=== PATIENT | female | born 1935 | race Caucasian/White ===

== ENCOUNTER 2018-04-23 19:56 | Inpatient (IN) | payer MEDICARE, OTHER ==
[2018-04-23] MEDS ORDERED: Nitroglycerin 0.4 MG TAB (25 Tab Bottle) PO PRN (21:34)
[2018-04-23] MEDS ORDERED: Acetaminophen 650 MG Suppository PR PRN (21:34)
[2018-04-23] MEDS ORDERED: Zolpidem Tartrate 5 MG TAB PO PRN (21:34)
[2018-04-23] MEDS ORDERED: Acetaminophen 325 MG TAB PO PRN (21:34)
[2018-04-23] MEDS ORDERED: Senokot S 8.6-50 MG TAB PO PRN (21:34)
[2018-04-23] MEDS ORDERED: Bisacodyl 5 MG TAB PO PRN (21:34)
[2018-04-23] MEDS ORDERED: Calcium Carbonate 500 MG ChewTAB PO PRN (21:34)
[2018-04-23 22:15] LABS: INR-International Normal Ratio 1.1; PTT 41.7 SEC (22.9-36.1); Prothrombin Time 14.7 SEC (12.0-14.7)
[2018-04-23 22:27] LABS: Albumin 3.7 g/dL (3.4-4.8); Anion Gap 13 mmol/L (10-20); BUN (Urea Nitrogen) 38 mg/dL (9.8-20.1); BUN/Creatinine Ratio 20.77; Calc. Creatinine Clearance 0 mL/min (70-130); Calcium 10.8 mg/dL (7.8-10.44); Carbon Dioxide 32 mmol/L (23-31); Chloride 99 mmol/L (98-107); Estimated GFR-MDRD 26; Glucose 179 mg/dL (83-110); Phosphorus 4.3 mg/dL (2.3-4.7); Potassium 4.3 mmol/L (3.5-5.1); Sodium 140 mmol/L (136-145)
--- NOTE | 2018-04-23 22:32 | ULT ---
RENAL ULTRASOUND: 04/23/18 COMPARISON: None. HISTORY: Acute kidney injury. TECHNIQUE: Multiplanar anderson scale and color doppler images were obtained in a renal ultrasound. FINDINGS: The kidneys demonstrate normal cortical echogenicity. There is mild cortical thinning. There is an an echoic cyst in the right kidney measuring 2.4 cm in greatest dimensions. No hydronephrosis or shadowi ng calculi are seen on the either side. The kidneys measures 8.6 and 9.2 cm in length on the right an d left, respectively. The urinary bladder is decompressed as the patient recently voided. IMPRESSION: Right renal cyst. POS: TIAGO
[2018-04-23 23:27] LABS: Troponin I 0.236 ng/mL (< 0.028)
[2018-04-23] MEDS ORDERED: Heparin 10,000 UNITS/ 10 ML VIAL SLOW IVP SCH (23:45)
[2018-04-24] MEDS ORDERED: Heparin 25,000 units/D5W 500 ML ONE (00:12)
[2018-04-24 01:43] LABS: Troponin I 0.182 ng/mL (< 0.028)
[2018-04-24] MEDS ORDERED: Nitroglycerin 2% Ointment 1 INCH/1 GM Packet ONE (02:53)
[2018-04-24 03:47] LABS: #Lymphocytes 0.4 thou/uL (1.20-3.40); %Eosinophils 0.2 % (0.0-10.0); %Monocytes 0.2 % (0.0-10.0); %Neutrophils 87.6 % (42.0-75.0); Hemoglobin 11.3 g/dL (12.0-16.0); Mean Corpuscular HGB CONC 33.5 g/dL (32.0-36.0); Mean Corpuscular Hemoglobin 32.5 pg (27.0-31.0); Mean Corpuscular Volume 97.2 fL (78.0-98.0); Platelet Count 181 thou/uL (130-400); RBC Distribution Width 14.4 % (11.5-14.5); Red Blood Cell (RBC) Count 3.48 mill/uL (4.20-5.40); White Blood Cell (WBC) Count 3.4 thou/uL (4.8-10.8)
[2018-04-24 04:09] LABS: Anion Gap 15 mmol/L (10-20); BUN (Urea Nitrogen) 41 mg/dL (9.8-20.1); Calc. Creatinine Clearance 0 mL/min (70-130); Calcium 10.3 mg/dL (7.8-10.44); Carbon Dioxide 29 mmol/L (23-31); Cardiac Risk 4.1 (Less than 4.5); Chloride 99 mmol/L (98-107); Cholesterol 198 mg/dl (< 200 Desired); Estimated GFR-MDRD 28; Glucose 226 mg/dL (83-110); HDL Cholesterol 48 mg/dL (>60 Neg Risk); LDL Cholesterol, Calculated 135 mg/dL; Potassium 4.1 mmol/L (3.5-5.1); Sodium 139 mmol/L (136-145); Triglycerides 75 mg/dL (Less than 150)
[2018-04-24 04:13] LABS: Troponin I 0.153 ng/mL (< 0.028)
[2018-04-24 08:02] LABS: PTT Greater than 250.0 SEC (22.9-36.1)
[2018-04-24] MEDS ORDERED: Famotidine 20 MG TAB PO SCH ×2 (09:00)
[2018-04-24] MEDS ORDERED: Famotidine/PF 20 mg/2ml Vial SLOW IVP SCH (09:00)
[2018-04-24 10:13] LABS: D-Dimer Test 3.23 *mcg/mL (0.27-0.43)
[2018-04-24 10:19] LABS: PTT 215.2 SEC (22.9-36.1)
[2018-04-24] MEDS ORDERED: Ondansetron PF 4 MG/2 ML Vial IVP PRN (11:48)
[2018-04-24] MEDS ORDERED: Ondansetron ODT 4 MG TAB PO PRN (11:48)
[2018-04-24] MEDS ORDERED: Sodium Chloride 0.9% 1,000 ML IV SCH ×2 (12:00→20:15)
--- NOTE | 2018-04-24 12:17 | ULT ---
BILATERAL LOWER EXTREMITY VENOUS ULTRASOUND: Comparison: None. History: Shortness of breath. Dyspnea on exertion. Technique: Multiplanar grayscale and color doppler images were obtained in a bilateral lower extremit y venous ultrasound. Spectral analysis of the doppler waveforms were performed. FINDINGS: Bilateral common femoral veins, profunda femoral veins, superficial femoral veins, and popliteal vein s are normal in appearance without visible thrombus. These vessels demonstrate normal compression, fl ow, and augmentation. The posterior tibial veins and greater saphenous veins are also patent. IMPRESSION: No evidence of DVT. POS: RANDY
[2018-04-24] MEDS ORDERED: Levothyroxine 150 MCG TAB PO SCH (12:32)
[2018-04-24] MEDS ORDERED: Furosemide 40 MG/4 ML VIAL SLOW IVP SCH (12:45)
[2018-04-24] MEDS ORDERED: PROVENTIL INHALER 6.7 G (200 INHALATIONS) INH PRN (13:00)
[2018-04-24] MEDS: Nitroglycerin 2% Ointment 1 INCH/1 GM Packet TOP SCH ×3 (13:21→22:37)
[2018-04-24] MEDS: Aspirin 325 MG TAB PO SCH (13:22)
[2018-04-24] MEDS: Famotidine/PF 20 mg/2ml Vial SLOW IVP SCH (13:23)
[2018-04-24 14:59] VITALS: BMI 40.1
--- NOTE | 2018-04-24 14:59 | HP ---
CHIEF COMPLAINT: Dyspnea on exertion. Presumed PE. HISTORY OF PRESENT ILLNESS AND REVIEW OF SYSTEMS: Mrs. Sanon is a very pleasant 83-year-old woman who presents complaining of dyspnea on exertion. She has noted progressively worsening shortness of breath for the last month. She states that has become increasingly worse even with walking very short distances such as to the bathroom from her bedroom, which is only a few feet. She denies having any chest pain per se, but describes "tightness," when she exerts herself after she becomes short of breath. She states this discomfort is nonradiating. She denies ever having any symptoms like this in the past. She reports of occasional cough recently, but no hemoptysis. She has a background history of fibromyalgia, rheumatoid arthritis, and asthma, but does not require daily inhaler use. In fact, the patient states she previously suffered from severe allergies, but this has improved. She was transferred here from [place] after she was noted to have an elevated troponin of 0.236. Subsequent repeat TNIs were 0.182 and then 0.153. The patient denies any history of heart disease, CHF, or COPD. She denies smoking. She states she was given nebulizer treatment in [place], which did help improve her wheezing. She remains on 4 L of O2 by nasal cannula and remains with labored breathing despite some mild improvement. She reports having right upper quadrant pain, which she states is attributed to gastritis. She has undergone endoscopies in the past. She denies any recent changes with her appetite. Has not had any hematemesis. Does report occasional dark blood colored stools. She denies any bright red blood in her stools. She states this has been going on for the last month, but has not sought any medical attention. Denies diarrhea or constipation. She denies having any recent fevers, chills, or sweats. Denies any headaches or dizziness. Negative ears, nose, and throat review of systems. All other review of systems are negative. PAST MEDICAL HISTORY: 1. Previous history of shingles. 2. Chronic back pain. 3. Hypothyroidism. 4. Fibromyalgia. 5. Rheumatoid arthritis, on methotrexate. 6. Hyperlipidemia. 7. Hypertension. 8. Asthma. PAST SURGICAL HISTORY: 1. Status post hysterectomy. 2. Status post cholecystectomy. SOCIAL HISTORY: The patient is and lives with her family. She denies any alcohol use or drug use. She does not currently smoke, but did smoke previously. She quit more than 10 years ago. ALLERGIES: NO KNOWN DRUG ALLERGIES. CURRENT MEDICATIONS: 1. Levothyroxine 137 mcg p.o. daily. 2. Tizanidine 2 mg p.o. at bedtime as needed. 3. Ventolin inhaler. 4. Metoprolol/hydrochlorothiazide 50/12.5 mg tablet p.o. daily. 5. Methotrexate sodium 25 mg/mL vial, 0.4 mL injection. 6. Folic acid 1 mg p.o. daily. 7. Valsartan 160 mg p.o. daily. 8. Fluticasone 50 mcg nasally daily. PHYSICAL EXAMINATION: GENERAL: The patient is found resting in bed. She is in no acute distress, but is visibly short of breath with oxygen in place by nasal cannula, requiring pauses between sentences to catch her breath. SKIN: Normal. Warm and dry. VITAL SIGNS: Stable HEENT: Normocephalic, atraumatic. Pupils are equal, round, and reactive to light. Sclerae without icterus. Oropharynx is clear. NECK: Supple without lymphadenopathy. LUNGS: Notable for mild expiratory wheezes throughout all lung conley. No crackles or rhonchi. CARDIOVASCULAR: Regular rate and rhythm. No audible murmurs, rubs, or gallops. ABDOMEN: Soft, obese. Nondistended. Right upper quadrant discomfort with palpation. No guarding or rigidity. No renal angle tenderness. EXTREMITIES: She does have increased girth of bilateral lower limbs, but no evidence of edema. The patient states this is chronic for her. No calf pain, but she does have generalized aching in her legs and the joints due to the fibromyalgia and rheumatoid arthritis. Bilateral pedal pulses present. NEUROLOGIC: Alert and oriented x3. Normal affect. No focal neurological deficits. LABORATORY DATA: White blood count 3.4, hemoglobin 11.3, hematocrit 33.9, platelets 181. PTT 41.7 initially. This was then raised to 250, therefore her heparin was discontinued. PTT is now 215.2. Sodium 129, potassium 4.1, BUN 41, creatinine 1.73, eGFR 28. Glucose 226, calcium 10.3. LFTs unremarkable. TNI as mentioned above. IMAGING DATA: 1. Chest x-ray: No evidence of acute cardiopulmonary disease. 2. CT abdomen and pelvis. Diverticulosis involving the colon without evidence of acute diverticulitis. Nonobstructing left renal calcifications seen as well as a right renal cyst. 3. Bilateral renal ultrasound notable for a right renal cyst. IMPRESSION AND PLAN: The patient has been admitted for further workup and management; however, remains on ER hold, awaiting a bed. 1. Presumed pulmonary embolism. The patient was started on heparin for presumed pulmonary embolism. We have requested a D-dimer. VQ scan was ordered due to deranged renal function, as well as low extremity doppler US. Given the significantly raised PTT, we will continue to hold heparin. 2. Hypoxia. Possibly due to PE or CHF. BNP raised with lower limb edema. Continue Oxygen and Duo nebs. Lasix 20 mg PO x 1. Pulmonary and Cardiology consult. Echo requested. 3. Acute kidney injury. Slow hydration. Continue to monitor. Awaiting Nephrology consult. 4. RUQ pain. Hx of gastritis, gastric ulcers. Recent dark blood colored stools x [address] of abdomen and pelvis done showing only diverticulosis with no signs of acute diverticulitis. She does have a left nonobstructing renal calculus. She will be started on PPI. Continue to monitor for signs/symptoms of GI bleed. 5. GI Prophylaxis. 6. VTE prophylaxis. Mechanical SCDs. Anticoagulation started, as presumed to have PE. The patient's case was discussed with Dr. Oliveira, who agrees with the plan of care as described above. Job ID: [id number] [facility]
--- NOTE | 2018-04-24 15:46 | CON ---
DATE OF CONSULTATION: REASON FOR CONSULTATION: Shortness of breath. HISTORY OF PRESENT ILLNESS: Ms. Sanon is an 83-year-old woman, who has not been seen or evaluated by Cardiology in the past. She states for the last 6 months, she has had increased shortness of breath. It has become more progressive. She was seen and evaluated by an nutrition manager, who has felt this was not due to an allergy. She was placed on nebulizer therapy and her symptoms worsened. She proceeded to the emergency room with the above. No chest pain, pressure, or associated symptoms noted. PAST MEDICAL HISTORY: Rheumatoid arthritis, hypertension. ALLERGIES: NONE. MEDICATIONS: Include tizanidine, Ventolin, Dutoprol, folic acid, levothyroxine, valsartan, and methotrexate. REVIEW OF SYSTEMS: A 10-point review of systems is reviewed and as above, otherwise negative. PHYSICAL EXAMINATION: GENERAL: Patient is a pleasant 83-year-old, who is in no acute distress. The patient appears their stated age. VITAL SIGNS: Blood pressure 130/64, pulse 92, temperature 98.8. NEUROLOGIC: The patient is alert and oriented x3 with no focal neurologic deficits. HEENT: Sclerae without icterus. Mouth has moist mucous membranes with normal pallor. NECK: No JVD. Carotid upstroke brisk. No bruits bilaterally. LUNGS: Crackles noted bilaterally. BACK: No scoliosis or kyphosis. CARDIAC: Irregularly irregular. Tachycardic. ABDOMEN: Soft, nontender, nondistended. No peritoneal signs present. No hepatosplenomegaly. No abnormal striae. EXTREMITIES: 2+ femoral and 2+ dorsalis pedis pulses. No cyanosis, clubbing, or edema. SKIN: No gross abnormalities. PERTINENT LABORATORY DATA: Hemoglobin 11.3. D-dimer 3.2. Creatinine 1.73 with a GFR of 28. EKG initially shows normal sinus rhythm with nonspecific ST-T wave changes. IMPRESSION: 1. Shortness of breath. 2. Elevated troponin. 3. 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 RECOMMENDATIONS: Ms. Sanon's symptoms certainly suggested underlying congestive heart failure. She has crackles noted bilaterally. Her BNP was slightly elevated at 423. At this point, I would recommend giving a low-dose diuretic therapy. I would not want to over diurese given a baseline creatinine of 1.73. She has an echo ordered and will review. She also has mild wheezing present on her physical exam and at this point, it is unlikely to benefit from beta-fani therapy, which could worsen her asthma. Further recommendations pending the above. Job ID: [id number]
--- NOTE | 2018-04-24 19:22 | HP ---
PRIMARY CARE PHYSICIAN: Dr. Perla Santoro in [place]. CHIEF COMPLAINT: Shortness of breath. HISTORY OF PRESENT ILLNESS: Ms. Sanon is a very pleasant 83-year-old female, who has a history of hypertension as well as rheumatoid arthritis and hypothyroidism. She was in her usual state of health until about a month ago when she noticed that she was becoming short of breath. She says she first noted it when she was moving around, for example she says that she walked from her room to her bathroom and by that time she did this, she was extremely short of breath, would have to sit down for about 30 minutes before she could recover. She also says that during this time she would get so short of breath that she would have physical pains in the upper abdominal area. She says that is the best way that she can describe it. She does not really say it is nell chest pain. She also states that she has been sleeping in her recliner over the past few days to weeks and it does seem like it is worse if she lays back. She says that it has gotten to the point where last night she felt like she was not going to make it due to the severe dyspnea. She came to the emergency room in [place], where she was evaluated and then transferred to our facility for further recommendations. It has been noted that she has a slightly elevated troponin and that her D-dimer was elevated as well, and there is concern for both acute coronary syndrome as well as possible thromboembolic disease. A CT angiogram was not performed due to her elevated creatinine. The patient apparently was given a DuoNeb treatment in the ER and then transferred to our facility. At this moment, she says she is slightly feeling a bit better. REVIEW OF SYSTEMS: All systems were reviewed and are negative except for that mentioned in the history of present illness. It is also mentioned that the patient says that she had a cardiac workup here at our facility, in which she had what sounds like an echocardiogram and a cardiac catheterization, that was normal. She says that this was just routine and it was not due to any symptoms. Apparently, it was a workup for some planned treatment by her power equipment technology instructor. PAST MEDICAL HISTORY: Significant for hypothyroidism, hyperlipidemia, hypertension, rheumatoid arthritis, asthma, and chronic low back pain. PAST SURGICAL HISTORY: She has had a hysterectomy and cholecystectomy. ALLERGIES: NO KNOWN DRUG ALLERGIES. SOCIAL HISTORY: She is . Her [id number] is her surrogate decision maker and her name is Corin. Code status is full code. She is a former smoker. She quit in 1989. She smoked for about 12 years. Denies any alcohol use. FAMILY HISTORY: No history of any heritable diseases. MEDICATIONS: She states these were given to the ER physician and these include; 1. Fluticasone nasal spray. 2. Tizanidine 2 mg q.4 hours p.r.n. 3. Ventolin inhaler. 4. Dutoprol 50/12.5 daily. 5. Folic acid 1 mg daily. 6. Levothyroxine 137 mcg daily. 7. Valsartan 160 mg daily. 8. Methotrexate 0.4 subcutaneous once a week. PHYSICAL EXAMINATION: GENERAL: She is alert and oriented. She appears to be in no acute distress. VITAL SIGNS: Blood pressure was 150/79, heart rate 83, respiratory rate of 25, temperature was 98.7. HEENT: Pupils are equal, round, and reactive. Extraocular muscles are intact. Sclerae are anicteric. Throat; no erythema. No exudates. NECK: No adenopathy. No bruits. LUNGS: She has decreased breath sounds at the bases. She has rales to about 1/[address] up on the left, quarter the way up on the right. No significant wheezing or rhonchi. CARDIOVASCULAR: She has a normal S1, S2. I did not appreciate an S3 or S4. No murmurs, clicks, or rubs. ABDOMEN: Obese and soft. It is nontender and nondistended. Positive for bowel sounds. There is no rebound, no guarding. EXTREMITIES: Her legs are mildly erythematous, but there is no warmth. She has 1 to 2+ pitting edema on both lower extremities. The edema is symmetric. She has palpable dorsalis pedis pulses. There is no crepitus. NEUROLOGIC: Her cranial nerves 2 through 12 are grossly intact, and her muscle strength is also intact in the upper and lower extremities. SKIN AND INTEGUMENT: She has some mild erythema of the lower extremities as previously mentioned as well as some mild onychomycosis of the toenails. LABORATORY AND DIAGNOSTIC DATA: On her chest x-ray, it is poorly penetrated. She has borderline cardiomegaly, and in my opinion, some increase in her pulmonary vascular markings bilaterally. EKG was sinus rhythm with a rate of [address] wave changes. ASSESSMENT AND PLAN: 1. This is a pleasant 83-year-old female, who presents with progressive dyspnea on exertion over the past month. This is in the setting of a history of hypertension as well as rheumatoid arthritis. She does elicit some symptoms of orthopnea, and her proBNP is elevated. Therefore, heart failure, either systolic or diastolic, is high on the list. She also has an elevated D-dimer, however, this could be elevated based on her age. However, she does have some chronic venous stasis changes and therefore pulmonary embolism should be ruled out, and given her history of rheumatoid arthritis, pulmonary fibrosis or interstitial lung disease is also a possibility. She will therefore be admitted to telemetry. We will get lower extremity venous Dopplers as well as a V/Q scan to help answer the question of pulmonary embolism. An echocardiogram will also be obtained as well as a Cardiology consult. Given the elevated BNP and what appears to be some degree of volume overload, we will give her a dose of Lasix now. 2. Hypertension. Her blood pressure is currently controlled. We will restart her usual home medications as well as p.r.n. medications for blood pressure. 3. Hypothyroidism. Her TSH is slightly suppressed. We will check a free T4. If this is normal, then the suppression of the TSH is appropriate. 4. Rheumatoid arthritis. We will continue her usual home medications and keep her on her usual schedule for methotrexate. 5. For the possible venous thromboembolic disorder, she was given a dose of heparin in the ER. We will go ahead and wait for the results of the Doppler as well as a V/Q scan before continuing any heparin infusion as the patient is currently clinically stable at this time. Job ID: [id number]
--- NOTE | 2018-04-24 19:53 | NM ---
NUCLEAR MEDICINE VQ SCAN: 04/24/18 HISTORY: Dyspnea on exertion. COMPARISON: None. TECHNIQUE: Patient administered 6 millicuries of Xenon gas for ventilation imaging and 5.5 millicuries of techne tium 99m MAA intravenously for perfusion imaging. FINDINGS/IMPRESSION: There do appear to be multifocal areas of ventilation perfusion mismatch having multifocal segmental/ subsegmental distribution. There is evidence for high probability for pulmonary artery embolism. CT angiogram of the chest is r ecommended. Results of the study discussed with Sabrina, patient's nurse, 04/24/18. Code CR POS: RANDY
[2018-04-24] MEDS ORDERED: Heparin 10,000 UNITS/ 10 ML VIAL SLOW IVP SCH (20:15)
[2018-04-24] MEDS ORDERED: Heparin 25,000 units/D5W 500 ML IV SCH (20:15)
[2018-04-24] MEDS: Famotidine 20 MG TAB PO SCH (20:58)
[2018-04-24] MEDS ORDERED: tiZANidine HCl 4 MG TAB PO PRN (21:00)
--- NOTE | 2018-04-24 21:48 | CON ---
DATE OF CONSULTATION: 04/24/2018 REASON FOR CONSULTATION: Elevated creatinine. HISTORY OF PRESENT ILLNESS: This is an 83-year-old female, who was admitted to the hospital today for elevated troponin and hypoxia. The patient's creatinine on admission was 1.7, prior baseline was 1.8 yesterday. Her creatinine has been gradually rising, prior baseline was 1.2 a few years ago. The patient denies any headache, numbness, tingling, or weakness. REVIEW OF SYSTEMS: A 15-point review of systems was performed and was negative except for positives noted above. GENERAL: HEAD: NECK: No swelling or lumps. NOSE: No epistaxis or discharge. EYES: No diplopia or pain. RESPIRATORY: CARDIOVASCULAR: GASTROINTESTINAL: /COURT CLERK: MUSCULOSKELETAL: No joint pain. NEUROPSYCHIATIC SYSTEMS: No suicidal ideation. No ideation. SKIN: Denies any rash or ulcer. CONSTITUTIONAL: No fever or chills. PAST MEDICAL HISTORY: Shingles, chronic back pain, hyperlipidemia, hypercholesterolemia, blood clots, congestive heart failure, rheumatoid arthritis. PAST SURGICAL HISTORY: Significant for hysterectomy, cholecystectomy. SOCIAL HISTORY: No tobacco, alcohol, or drug use. ALLERGIES: REVIEWED. HOME MEDICATIONS: Reviewed. PHYSICAL EXAMINATION: GENERAL: The patient is awake and alert. VITAL SIGNS: Afebrile. Pulse 86, breathing 16, blood pressure 139/85. GENERAL APPEARANCE AND MENTAL STATUS: Fair. HEAD/NECK: Normocephalic. Atraumatic. EYES: EOMI. No deformity. EARS: Clear. No ulcers. NOSE: Intact. No lesions. MOUTH: Clear. No discharge. THROAT: Clear. No exudate. LUNGS: Clear. No crackles. CARDIAC: S1, S2. No rub. ABDOMEN: Benign. Bowel sounds positive. GENITALIA/RECTUM: Meek absent. BACK/EXTREMITIES: Edema 0+. NEUROLOGICAL: Alert and motor intact. SKIN: LYMPHATICS: ASSESSMENT AND PLAN: 1. Acute kidney injury due to cardiorenal syndrome. Continue gentle hydration. 2. Hypertension, stable. 3. Anemia, stable. 4. Medications based on GFR as appropriate. 5. No indication for dialysis. Job ID: [id number]
[2018-04-25] MEDS: Nitroglycerin 2% Ointment 1 INCH/1 GM Packet TOP SCH ×3 (05:17→21:33)
[2018-04-25] MEDS: Levothyroxine Sodium 112 MCG TAB PO SCH (05:18)
[2018-04-25] MEDS: Levothyroxine Sodium 25 MCG TAB PO SCH (05:18)
[2018-04-25 05:52] LABS: #Eosinphils 0.3 thou/uL (0.0-0.7); #Monocytes 0.1 thou/uL (0.11-0.59); #Neutrophils 3.7 thou/uL (1.40-6.50); %Basophils 0.8 % (0.0-1.0); %Eosinophils 6.7 % (0.0-10.0); %Lymphocytes 19.5 % (21.0-51.0); %Monocytes 2.2 % (0.0-10.0); %Neutrophils 70.9 % (42.0-75.0); Hemoglobin 9.7 g/dL (12.0-16.0); Mean Corpuscular Hemoglobin 32.5 pg (27.0-31.0); Mean Corpuscular Volume 98.6 fL (78.0-98.0); Mean Platelet Volume 7.1 fL (7.4-10.4); Platelet Count 205 thou/uL (130-400); RBC Distribution Width 14.4 % (11.5-14.5); White Blood Cell (WBC) Count 5.2 thou/uL (4.8-10.8)
[2018-04-25 06:04] LABS: PTT 228.4 SEC (22.9-36.1)
[2018-04-25 06:08] LABS: Chloride 101 mmol/L (98-107); Potassium 3.8 mmol/L (3.5-5.1); Sodium 142 mmol/L (136-145)
[2018-04-25 06:47] LABS: Anion Gap 16 mmol/L (10-20); Carbon Dioxide 30 mmol/L (23-31)
[2018-04-25 07:27] LABS: BUN (Urea Nitrogen) 45 mg/dL (9.8-20.1); Calc. Creatinine Clearance 45 mL/min (70-130); Estimated GFR-MDRD 35; Glucose 124 mg/dL (83-110)
[2018-04-25] MEDS: Famotidine 20 MG TAB PO SCH ×2 (08:09→21:33)
[2018-04-25] MEDS: Aspirin 325 MG TAB PO SCH (08:09)
[2018-04-25] MEDS: Folic Acid 1 MG TAB PO SCH (08:09)
[2018-04-25] MEDS: Valsartan 80 MG TAB PO SCH (08:09)
[2018-04-25] MEDS: Fluticasone Propionate Nasal Spray 16 gm Bottle NASAL SCH (08:10)
[2018-04-25] MEDS: Famotidine/PF 20 mg/2ml Vial SLOW IVP SCH (08:10)
[2018-04-25] MEDS ORDERED: Sodium Chloride 0.9% 1,000 ML IV SCH (09:00)
[2018-04-25] MEDS: Furosemide 20 MG/2 ML VIAL SLOW IVP SCH (09:03)
[2018-04-25] MEDS: Pantoprazole 40 MG VIAL IVP SCH (09:03)
--- NOTE | 2018-04-25 09:19 | PDOC.PN ---
- Subjective Encounter Start Date: 04/25/18 Encounter Start Time: 09:19 Subjective: SOB with persistent labored breathing. Able to speak in full sentences. -: RUQ pain (hx gastric ulcers). Last BM yesterday morning, soft, no melena. -: Denies CP. Edema of lower legs and hands. Denies fever. Eating/drinking. Has not received Nebs yet since admission. No cough or hemoptysis. Patient states she her more recent cardiac work-up was done due to medications for Fibromyalgia/Rheumatoid arthritis. Under. Dr. Mark. - Objective Resuscitation Status - Order Detail: 04/23/18 21:34 Resuscitation Status Routine Resuscitation Status: FULL: Full Resuscitation Vital Signs & Weight: Vital Signs (12 hours) Temp Pulse Resp BP Pulse Ox 04/25/18 08:03 98.2 F 80 20 136/62 98 04/25/18 03:00 97.9 F 83 20 106/60 97 04/24/18 23:56 98 F 92 22 H 102/50 L 93 L Weight Weight 218 lb 4.122 oz I&O: 04/24/18 04/25/18 04/26/18 06:59 06:59 06:59 Intake Total 899 Output Total 250 Balance 649 Result Diagrams: 04/25/18 04:39 04/25/18 04:39 Phys Exam - Physical Examination Constitutional: NAD HEENT: PERRLA, sclera anicteric, oral pharynx no lesions MMs dry. Neck: no nodes, supple, full ROM Respiratory: wheezing present Bilateral expiratory wheezing, crackles at bases bilaterally. Cardiovascular: RRR No chest wall tenderness Gastrointestinal: soft, no distention, positive bowel sounds RUQ discomfort with palpation, no rigidity or guarding present Musculoskeletal: edema present trace edema in bilateral hands and lower legs(feet to knees) Neurological: non-focal, normal sensation, moves all 4 limbs Lymphatic: no nodes Psychiatric: normal affect, A&O x 3 Skin: no rash Dx/Plan (1) Suspected pulmonary embolism Code(s): R09.89 - OTH SYMPTOMS AND SIGNS INVOLVING THE CIRC AND RESP SYSTEMS Status: Acute (2) SOB (shortness of breath) Code(s): R06.02 - SHORTNESS OF BREATH Status: Acute (3) Hypoxia Code(s): R09.02 - HYPOXEMIA Status: Acute (4) RANDOLPH (acute kidney injury) Code(s): N17.9 - ACUTE KIDNEY FAILURE, UNSPECIFIED Status: Acute (5) Abdominal pain Code(s): R10.9 - UNSPECIFIED ABDOMINAL PAIN Status: Acute - Plan cont current plan of care, respiratory therapy Low diuresis per Nephrology - Lasix 20 mg IV prescribed. Daily AM weights. -: Renal function improving, Cr 1.44, Cr Cl 45. Slow IV hydration (55 ml/hr). -: S/p Echo: EF 55-60%, diastolic dysfunction. Awaiting Cardrio review. -: SOB/Wheezing. Duo-neb changed from PRN to scheduled. Awaiting Pulm Consult -: S/p VQ. Highly Probable PE. Heparin D/C. Lovenox 150 mg SC daily, wt=99.7kg Continue O2. Monitor O2 sat. RUQ pain, hx of gastric ulcers. CT/AP no acute changes. Protonix 40 mg IV. Monitor for symptoms of GI bleed. Monitor H/H. Repeat Labs this PM including H/H, renal function and BNP.
--- NOTE | 2018-04-25 10:22 | PDOC.CTH ---
Cardiology Progress Note - Subjective Still with c/o SOB/TRACY. Wheezing less. c/o constipation. - Objective Vital Signs Temp Pulse Resp BP Pulse Ox 04/25/18 09:56 94 24 H 96 04/25/18 08:03 98.2 F 80 20 136/62 98 04/25/18 03:00 97.9 F 83 20 106/60 97 04/24/18 23:56 98 F 92 22 H 102/50 L 93 L Weight 218 lb 4.122 oz 04/24/18 04/25/18 04/26/18 06:59 06:59 06:59 Intake Total 899 Output Total 250 Balance 649 - Physical Examination General/Neuro: alert & oriented x3 Lungs: CTA Heart: RRR Abdomen: NT/ND Extremities: + edema B - Telemetry Telemetry Rhythm: SR - Labs Result Diagrams: 04/25/18 15:33 04/25/18 15:33 Troponin/CKMB Troponin I 0.153 ng/mL (< 0.028) H 04/24/18 03:38 - Assessment/Plan 1. PE 2. Acute on chronic diastolic CHF 3. Moderate MR 4. HTN 5. NEIL Patient changed from Heparin gtt to lovenox today. Can hopefully transition to Eliquis or Xarelto in next 24 hours. Awaiting pulmonary consult. Bblocker held at this point. May resume in the future once symptomatically improved. Continue IV lasix one more day and transition to po. Pt seen and examined. (+) perfusion defect strongly suggesting PE. On ACT. Change to PO ACT tomorrow. Pulmonary consult.
[2018-04-25] MEDS ORDERED: Enoxaparin Sodium 100 MG/ML SYRINGE SC SCH (10:30)
--- NOTE | 2018-04-25 10:32 | PRG ---
DATE OF SERVICE: 04/25/2018 SUBJECTIVE: This is an 83-year-old female being seen for acute kidney injury. The patient denies any nausea, vomiting, or chest pain. OBJECTIVE: CONSTITUTIONAL: On examination, the patient is awake, alert. VITAL SIGNS: Afebrile, pulse 98, breathing 16, and blood pressure 136/62. GENERAL APPEARANCE AND MENTAL STATUS: Fair. HEAD/NECK: Normocephalic. Atraumatic. EYES: EOMI. No deformity. EARS: Clear. No ulcers. NOSE: Intact. No lesions. MOUTH: Clear. No discharge. THROAT: Clear. No exudate. LUNGS: Clear. No crackles. CARDIAC: S1, S2. No rub. ABDOMEN: Benign. Bowel sounds positive. GENITALIA/RECTUM: Meek absent. BACK/EXTREMITIES: Edema 0+. NEUROLOGICAL: Alert and motor intact. LABORATORY DATA: Labs show hemoglobin 9.7. Creatinine 1.4. ASSESSMENT AND PLAN: 1. Acute kidney injury, stable. 2. Hypertension, stable. 3. Anemia, stable. 4. Medication based on glomerular filtration rate are appropriate. Job ID: [id number]
[2018-04-25 15:49] LABS: #Eosinphils 0.4 thou/uL (0.0-0.7); #Lymphocytes 0.8 thou/uL (1.20-3.40); #Monocytes 0.2 thou/uL (0.11-0.59); #Neutrophils 3.8 thou/uL (1.40-6.50); %Basophils 0.9 % (0.0-1.0); %Eosinophils 7.9 % (0.0-10.0); %Lymphocytes 15.5 % (21.0-51.0); %Monocytes 2.9 % (0.0-10.0); %Neutrophils 72.8 % (42.0-75.0); Hemoglobin 10.6 g/dL (12.0-16.0); Mean Corpuscular HGB CONC 32.9 g/dL (32.0-36.0); Mean Corpuscular Hemoglobin 32.4 pg (27.0-31.0); Mean Corpuscular Volume 98.4 fL (78.0-98.0); Mean Platelet Volume 6.9 fL (7.4-10.4); Platelet Count 214 thou/uL (130-400); RBC Distribution Width 14.7 % (11.5-14.5); Red Blood Cell (RBC) Count 3.26 mill/uL (4.20-5.40); White Blood Cell (WBC) Count 5.2 thou/uL (4.8-10.8)
[2018-04-25 16:14] LABS: Albumin 3.3 g/dL (3.4-4.8); Anion Gap 16 mmol/L (10-20); BUN (Urea Nitrogen) 39 mg/dL (9.8-20.1); Calc. Creatinine Clearance 41 mL/min (70-130); Calcium 9.3 mg/dL (7.8-10.44); Carbon Dioxide 26 mmol/L (23-31); Chloride 100 mmol/L (98-107); Estimated GFR-MDRD 32; Glucose 163 mg/dL (83-110); Phosphorus 2.3 mg/dL (2.3-4.7); Potassium 3.5 mmol/L (3.5-5.1); Sodium 138 mmol/L (136-145)
[2018-04-25] MEDS ORDERED: predniSONE 20 MG TAB PO SCH (21:30)
[2018-04-25] MEDS: Apixaban 5 MG TAB PO SCH (21:33)
--- NOTE | 2018-04-25 22:43 | CON ---
DATE OF CONSULTATION: 04/25/2018 SERVICE: Pulmonary Medicine. REASON FOR CONSULT: ILD. HISTORY OF PRESENT ILLNESS: The patient is an 83-year-old white female with past medical history significant for rheumatoid arthritis. She has been on several different medications in the past. Most recently, she got placed on disease modifying therapy. She was in her usual state of health until about 2 months ago. She noticed that she started having fatigue whenever she do some metal cutter. She also had lower extremity weakness that would recover after she would rest for short period of time. One month ago, she started having progressing dyspnea on exertion. This became severe. Eventually, she started having nocturnal symptoms that would wake her up from sleep. She wakes up gasping and choking and short of breath. This progressed to the point, where she could not get by anymore and presented to the Emergency Department, where she was discovered to be hypoxemic. She denies any fevers, chills, or nausea or vomiting. She will cough up yellow phlegm on many days out of the week. She is not having any hot, red, or swollen joints. She has noticed increasing swelling in her legs, hips, and a little bit in her abdomen and arms. In the Emergency Department, a D-dimer was elevated. Because she had some kidney issues, she underwent a V/Q scan, which was widely abnormal. She was started on some blood thinners. Over the last 24 hours, she has actually improved dramatically. She had yet to be too terribly active or mobile. PAST MEDICAL HISTORY: 1. Hypothyroidism. 2. Dyslipidemia. 3. Hypertension. 4. Rheumatoid arthritis. 5. Chronic low back pain. 6. Asthma, possible. 7. Thromboembolic disease (PE in 2018). PAST SURGICAL HISTORY: 1. Hysterectomy. 2. Cholecystectomy. ALLERGIES: NO KNOWN DRUG ALLERGIES. MEDICATIONS: List of her inpatient medications was reviewed. No specific updates were made at this time. SOCIAL HISTORY: She is a . She denies any alcohol, tobacco, or illicit drug use currently. She has about a 6 to 10 pack year history of smoking. She denies any street drugs. She has no exposure to chemicals, dust, asbestos, or tuberculosis. FAMILY HISTORY: Noncontributory. REVIEW OF SYSTEMS: General, head, ears, eyes, nose, throat, cardiovascular, respiratory, GI, , musculoskeletal, neurologic, and skin are negative except as mentioned is the HPI. PHYSICAL EXAMINATION: VITAL SIGNS: Afebrile, pulse 87, blood pressure 136/58, respirations 15, and saturation 100% on 2 L nasal cannula. GENERAL: The patient is awake and alert, in no apparent distress. LUNGS: Excellent air entry. There is no prolonged expiratory phase or wheezing present. Dependent crackles are minimal. HEART: Normal rate, regular. ABDOMEN: Soft, nontender, and nondistended. Bowel sounds are positive. MUSCULOSKELETAL: No cyanosis or clubbing. There is no pitting in the bilateral lower extremities. NEUROLOGIC: Grossly nonfocal. LABORATORY DATA: WBC 5.2, hemoglobin 10.6, and platelets 214,000. INR 1.1. Creatinine 1.56. Basic metabolic profile is otherwise unremarkable. Phosphorus 2.3. Albumin 3.3. BNP is significantly downtrending to 102.4. Troponin is downtrending to 0.15. Blood cultures x2 are unremarkable. IMAGING: Chest x-ray demonstrates no acute cardiopulmonary abnormality. CT of the abdomen and pelvis demonstrates diverticulosis without any evidence of inflammatory changes. Nonobstructing left renal calculus is noted. There is a right renal cyst. I evaluated the lung windows. There is absolutely no evidence of interstitial lung disease process present. There is a rim of atelectasis in the bibasilar regions. Renal ultrasound demonstrates no obstructive nephropathy. V/Q scan demonstrates a high probability scan for PE. Ultrasound of bilateral lower extremities demonstrates no evidence of a PE. Echocardiogram demonstrates normal ejection fraction, diastolic dysfunction. There is moderate mitral regurgitation present. Right ventricular systolic pressures are elevated, though the RV function looks perfectly normal without significant strain noted. ASSESSMENT: 1. Acute hypoxic respiratory failure. 2. Acute pulmonary embolism. 3. Rheumatoid arthritis without interstitial lung disease. 4. Obstructive sleep apnea, suspected. 5. Pulmonary hypertension, likely secondary to left heart disease. 6. Asthma, possible. DISCUSSION AND PLAN: We will give the patient a 5-day course of steroids, nebulized medications, and antibiotics. This is treating an acute bronchitis type of an exacerbation. I will switch her off the Lovenox and put her on Eliquis 5 mg twice daily. I had a discussion with her about not having therapy versus having therapy and the different types of p.o. therapy that is available. Ultimately, she made decision to move forward with Eliquis understanding the risks of bleed that are associated with this medication. She understands that if she has bleeding in the location, where she cannot put her finger on it stop the bleeding, that constitutes an emergency and she should present immediately to the Emergency Department. Furthermore, she understands that if she has an intracranial bleed, that would be life-threatening. As she is demonstrating a rapid improvement in biomarkers (BNP and troponin), I am not inclined to consider her for tPA. I will repeat a BNP, and troponin with tomorrow morning's laboratories. If these things are trending downward, she is a candidate for transition home. Pulmonary/Critical Care will continue to follow along, if she remains in-house. Job ID: [id number]
[2018-04-26 05:44] LABS: #Eosinphils 0.1 thou/uL (0.0-0.7); #Lymphocytes 0.3 thou/uL (1.20-3.40); #Monocytes 0.1 thou/uL (0.11-0.59); #Neutrophils 2.5 thou/uL (1.40-6.50); %Basophils 0.7 % (0.0-1.0); %Eosinophils 2.1 % (0.0-10.0); %Lymphocytes 9.2 % (21.0-51.0); %Monocytes 3.9 % (0.0-10.0); %Neutrophils 84.1 % (42.0-75.0); Hemoglobin 9.5 g/dL (12.0-16.0); Mean Corpuscular HGB CONC 33.7 g/dL (32.0-36.0); Mean Corpuscular Volume 97.9 fL (78.0-98.0); Mean Platelet Volume 6.7 fL (7.4-10.4); Platelet Count 182 thou/uL (130-400); RBC Distribution Width 14.8 % (11.5-14.5); Red Blood Cell (RBC) Count 2.88 mill/uL (4.20-5.40)
[2018-04-26] MEDS: Levothyroxine Sodium 112 MCG TAB PO SCH (06:00)
[2018-04-26] MEDS: Levothyroxine Sodium 25 MCG TAB PO SCH (06:00)
[2018-04-26] MEDS: Nitroglycerin 2% Ointment 1 INCH/1 GM Packet TOP SCH (06:00)
[2018-04-26 06:09] LABS: ALT (SGPT) 26 U/L (8-55); AST (SGOT) 31 U/L (5-34); Albumin 3.1 g/dL (3.4-4.8); Alkaline Phosphatase 53 U/L (40-150); Anion Gap 14 mmol/L (10-20); BUN (Urea Nitrogen) 32 mg/dL (9.8-20.1); Bilirubin, Total 0.5 mg/dL (0.2-1.2); Calc. Creatinine Clearance 43 mL/min (70-130); Calcium 8.9 mg/dL (7.8-10.44); Carbon Dioxide 28 mmol/L (23-31); Chloride 100 mmol/L (98-107); Estimated GFR-MDRD 33; Globulin 2.5 g/dL (2.4-3.5); Glucose 172 mg/dL (83-110); Potassium 3.9 mmol/L (3.5-5.1); Protein, Total 5.6 g/dL (6.0-8.3); Sodium 138 mmol/L (136-145)
[2018-04-26 06:12] LABS: Troponin I 0.053 ng/mL (< 0.028)
[2018-04-26] MEDS: predniSONE 20 MG TAB PO SCH (08:22)
[2018-04-26] MEDS: Aspirin 325 MG TAB PO SCH (08:22)
[2018-04-26] MEDS: Apixaban 5 MG TAB PO SCH ×2 (08:22→20:02)
[2018-04-26] MEDS: Valsartan 80 MG TAB PO SCH (08:23)
[2018-04-26] MEDS: Famotidine 20 MG TAB PO SCH ×2 (08:23→20:02)
[2018-04-26] MEDS: Folic Acid 1 MG TAB PO SCH (08:23)
[2018-04-26] MEDS: Furosemide 20 MG/2 ML VIAL SLOW IVP SCH (08:24)
[2018-04-26] MEDS: Famotidine/PF 20 mg/2ml Vial SLOW IVP SCH (08:24)
[2018-04-26] MEDS: Pantoprazole 40 MG VIAL IVP SCH (08:24)
--- NOTE | 2018-04-26 10:15 | PDOC.CTH ---
Cardiology Progress Note - Subjective No complaints. Feeling much better today. Started on Eliquis 5mg BID by pulmonary. - Objective Vital Signs Temp Pulse Resp BP Pulse Ox 04/26/18 08:15 98.5 F 102 H 22 H 123/56 L 94 L 04/26/18 06:48 96 04/26/18 06:47 96 20 96 04/26/18 03:54 97.6 F 95 19 132/58 L 92 L 04/26/18 00:34 98 20 94 L 04/25/18 23:28 98.3 F 99 18 130/55 L 96 Weight 218 lb 3.2 oz 04/25/18 04/26/18 04/27/18 06:59 06:59 06:59 Intake Total 899 1810 Output Total 250 1200 Balance 649 610 - Physical Examination General/Neuro: alert & oriented x3 Neck: no JVD present Lungs: CTA Heart: RRR Abdomen: NT/ND - Telemetry Telemetry Rhythm: SR - Labs Result Diagrams: 04/26/18 04:54 04/26/18 04:54 Troponin/CKMB Troponin I 0.053 ng/mL (< 0.028) H 04/26/18 04:54 - Assessment/Plan 1. PE 2. Acute on chronic diastolic CHF 3. Moderate MR 4. HTN 5. NEIL Increase Eliquis to 10mg BID for 7 days, then decrease to 5mg BID. Discussed risks/benefits of Eliquis vs coumadin with patient. She understands. Increase activity today. Up to chair. D/C nitropaste. No changes. As above. Increase eliquis for 7 days then resume normal dosing.
[2018-04-26] MEDS: Fluticasone Propionate Nasal Spray 16 gm Bottle NASAL SCH (11:17)
--- NOTE | 2018-04-26 13:21 | PDOC.PN ---
- Subjective Encounter Start Date: 04/26/18 Encounter Start Time: 09:00 Subjective: Continues to be sob at rest. Requiring O2 4L by NC. Afebrile. No cough/CP. -: No hemoptysis. Has lower leg edema, unchanged. No headaches, dizziness. -: Feeling afraid after conversation with Dr. Spicer, re: O2 at home. - Objective Resuscitation Status - Order Detail: 04/23/18 21:34 Resuscitation Status Routine Resuscitation Status: FULL: Full Resuscitation Vital Signs & Weight: Vital Signs (12 hours) Temp Pulse Resp BP Pulse Ox 04/26/18 11:20 109 H 22 H 112/55 L 94 L 04/26/18 08:15 98.5 F 102 H 22 H 123/56 L 94 L 04/26/18 08:00 94 L 04/26/18 06:48 96 04/26/18 06:47 96 20 96 04/26/18 03:54 97.6 F 95 19 132/58 L 92 L Weight Weight 218 lb 3.2 oz I&O: 04/25/18 04/26/18 04/27/18 06:59 06:59 06:59 Intake Total 899 1810 Output Total 250 1200 Balance 649 610 Result Diagrams: 04/26/18 04:54 04/26/18 04:54 Phys Exam - Physical Examination Patient appears visibly SOB when speaking, but resting. HEENT: PERRLA, sclera anicteric Neck: supple, full ROM Expiratory wheezing through all lung conley. Cardiovascular: RRR Gastrointestinal: soft, no distention, positive bowel sounds Musculoskeletal: edema present bilateral lower leg edema Neurological: non-focal, normal sensation, moves all 4 limbs Psychiatric: normal affect, A&O x 3 Skin: no rash Dx/Plan (1) Suspected pulmonary embolism Code(s): R09.89 - OTH SYMPTOMS AND SIGNS INVOLVING THE CIRC AND RESP SYSTEMS Status: Acute (2) SOB (shortness of breath) Code(s): R06.02 - SHORTNESS OF BREATH Status: Acute (3) Hypoxia Code(s): R09.02 - HYPOXEMIA Status: Acute (4) RANDOLPH (acute kidney injury) Code(s): N17.9 - ACUTE KIDNEY FAILURE, UNSPECIFIED Status: Acute (5) Bronchitis Code(s): J40 - BRONCHITIS, NOT SPECIFIED ACUTE OR CHRONIC Status: Acute (6) Acute on chronic diastolic CHF (congestive heart failure) Code(s): I50.33 - ACUTE ON CHRONIC DIASTOLIC (CONGESTIVE) HEART FAILURE Status : Acute - Plan cont current plan of care, continue antibiotics Transitioned to Eliquis. Continue nebs. -: Continue O2. Started on abx & steroids for bronchitis. Awaiting Pulm review -: Cardiology following re: acute on chronic CHF. -: I have attempted to answer some of the patients questions. -: Dr. Sandoval will see her today. * .
--- NOTE | 2018-04-26 14:03 | PRG ---
DATE OF SERVICE: 04/26/2018 SUBJECTIVE: An 83-year-old female, being seen for acute kidney injury. The patient denies any nausea, vomiting, or chest pain. OBJECTIVE: GENERAL: The patient is awake and alert. VITAL SIGNS: Afebrile, pulse 102, breathing 16, blood pressure 122/56. GENERAL APPEARANCE AND MENTAL STATUS: Fair. HEAD/NECK: Normocephalic. Atraumatic. EYES: EOMI. No deformity. EARS: Clear. No ulcers. NOSE: Intact. No lesions. MOUTH: Clear. No discharge. THROAT: Clear. No exudate. LUNGS: Clear. No crackles. CARDIAC: S1, S2. No rub. ABDOMEN: Benign. Bowel sounds positive. GENITALIA/RECTUM: Meek absent. BACK/EXTREMITIES: Edema 0+. NEUROLOGICAL: Alert and motor intact. SKIN: LYMPHATICS: LABORATORY DATA: Hemoglobin 9.5. Creatinine 1.5. ASSESSMENT AND PLAN: 1. Chronic kidney disease stage 3, stable. 2. Hypertension, stable. 3. Anemia, stable. 4. Medication based on glomerular filtration rate are appropriate. Job ID: [id number]
--- NOTE | 2018-04-26 22:07 | PRG ---
DATE OF SERVICE: 04/26/2018 SERVICE: Pulmonary Medicine. INTERVAL HISTORY: The patient is doing fine from a respiratory standpoint. Her appetite is improved. Her strength is improved. In truth, she indicates she feels better than she has in over a week and a half. She has a little bit of a cough. It is more of a tickle in her throat that she feels like she needs to clear. She does not feel like it is coming from her chest. She is not having any hemoptysis. PHYSICAL EXAMINATION: VITAL SIGNS: Afebrile, pulse 97, blood pressure 113/49, respirations 16, and saturation 92% on 3 L nasal cannula. GENERAL: The patient is awake and alert, in no apparent distress. LUNGS: Decent air entry. No rhonchi, wheezing, or crackles appreciated. HEART: Normal rate regular. ABDOMEN: Soft, nontender, and nondistended. Bowel sounds are positive. MUSCULOSKELETAL: No cyanosis or clubbing. There is no pitting in the bilateral lower extremities. NEUROLOGIC: Grossly nonfocal. LABORATORY DATA: WBC 3.0, hemoglobin 9.5, platelets 182,000. Troponin continues to trend downward to 0.053. BNP is roughly stable. Creatinine is stable at 1.5, which is close to her baseline. ASSESSMENT: 1. Acute hypoxic respiratory failure. 2. Acute pulmonary embolism. 3. Rheumatoid arthritis without interstitial lung disease. 4. Obstructive sleep apnea, suspected. 5. Pulmonary hypertension, likely multifactorial secondary to sleep apnea, heart disease, and pulmonary embolism. 6. Asthma, possible. DISCUSSION AND PLAN: We will complete a 5-day course of steroids and antibiotics. We can continue our nebulized medications through time on an as needed basis. On discharge from the hospital, she will need to continue taking her Eliquis, and her home inhalers for underlying lung disease. From my perspective, she is stable for transition out of the hospital. I will give her a single dose of Lasix tomorrow morning. Pulmonary Critical Care will continue to follow along. If she is too weak for discharge in the morning, we may need to look into care home options to stabilize her further before she transitions home. Additionally, if oxygen is required, this can be set up in the outpatient setting, and I will reassess her need within four weeks. In the outpatient setting, we will set her up for a polysomnogram. Job ID: [id number]
[2018-04-27] MEDS: Levothyroxine Sodium 112 MCG TAB PO SCH (05:30)
[2018-04-27] MEDS: Levothyroxine Sodium 25 MCG TAB PO SCH (05:31)
[2018-04-27 05:42] LABS: Hemoglobin 9.4 g/dL (12.0-16.0); Platelet Count 189 thou/uL (130-400)
[2018-04-27 05:46] LABS: #Eosinphils 0.1 thou/uL (0.0-0.7); #Monocytes 0.5 thou/uL (0.11-0.59); #Neutrophils 3.7 thou/uL (1.40-6.50); %Basophils 0.3 % (0.0-1.0); %Eosinophils 1.6 % (0.0-10.0); %Lymphocytes 18.3 % (21.0-51.0); %Neutrophils 70.7 % (42.0-75.0); Hemoglobin 9.4 g/dL (12.0-16.0); Mean Corpuscular HGB CONC 32.9 g/dL (32.0-36.0); Mean Corpuscular Hemoglobin 33.1 pg (27.0-31.0); Mean Platelet Volume 7.1 fL (7.4-10.4); Platelet Count 180 thou/uL (130-400); RBC Distribution Width 15.3 % (11.5-14.5); Red Blood Cell (RBC) Count 2.85 mill/uL (4.20-5.40); White Blood Cell (WBC) Count 5.2 thou/uL (4.8-10.8)
[2018-04-27 05:59] LABS: ALT (SGPT) 25 U/L (8-55); AST (SGOT) 28 U/L (5-34); Albumin 3.2 g/dL (3.4-4.8); Alkaline Phosphatase 47 U/L (40-150); Anion Gap 13 mmol/L (10-20); BUN (Urea Nitrogen) 35 mg/dL (9.8-20.1); Bilirubin, Total 0.3 mg/dL (0.2-1.2); Calc. Creatinine Clearance 34 mL/min (70-130); Calcium 8.5 mg/dL (7.8-10.44); Carbon Dioxide 32 mmol/L (23-31); Chloride 100 mmol/L (98-107); Estimated GFR-MDRD 25; Glucose 157 mg/dL (83-110); Potassium 3.4 mmol/L (3.5-5.1); Protein, Total 5.2 g/dL (6.0-8.3); Sodium 142 mmol/L (136-145)
[2018-04-27] MEDS: Famotidine/PF 20 mg/2ml Vial SLOW IVP SCH (08:25)
[2018-04-27] MEDS: Pantoprazole 40 MG VIAL IVP SCH (08:34)
[2018-04-27] MEDS: Fluticasone Propionate Nasal Spray 16 gm Bottle NASAL SCH (08:34)
[2018-04-27] MEDS: Furosemide 40 MG/4 ML VIAL SLOW IVP SCH (08:34)
[2018-04-27] MEDS: Valsartan 80 MG TAB PO SCH (08:35)
[2018-04-27] MEDS: Apixaban 5 MG TAB PO SCH ×2 (08:35→20:17)
[2018-04-27] MEDS: Folic Acid 1 MG TAB PO SCH (08:36)
[2018-04-27] MEDS: Aspirin 325 MG TAB PO SCH (08:36)
[2018-04-27] MEDS: Famotidine 20 MG TAB PO SCH ×2 (08:36→20:17)
[2018-04-27] MEDS: predniSONE 20 MG TAB PO SCH (08:36)
--- NOTE | 2018-04-27 10:07 | PRG ---
DATE OF SERVICE: 04/27/2018 SUBJECTIVE: An 83-year-old female, being seen for acute kidney injury. The patient denied nausea, vomiting, or chest pain. OBJECTIVE: CONSTITUTIONAL: The patient is awake and alert. VITAL SIGNS: Afebrile, pulse 99, breathing 16, blood pressure 126/62. GENERAL APPEARANCE AND MENTAL STATUS: Fair. HEAD/NECK: Normocephalic. Atraumatic. EYES: EOMI. No deformity. EARS: Clear. No ulcers. NOSE: Intact. No lesions. MOUTH: Clear. No discharge. THROAT: Clear. No exudate. LUNGS: Clear. No crackles. CARDIAC: S1, S2. No rub. ABDOMEN: Benign. Bowel sounds positive. GENITALIA/RECTUM: Meek absent. BACK/EXTREMITIES: Edema 0+. NEUROLOGICAL: Alert and motor intact. SKIN: LYMPHATICS: LABORATORY DATA: Hemoglobin 9.4. Creatinine 1.9. ASSESSMENT AND PLAN: 1. Acute kidney injury on chronic kidney disease, stage 4. 2. Hypokalemia. Recommend potassium replacement. Medications based on GFR. We would recommend avoiding ARB at this time. Continue diuretics. 3. Congestive heart failure. Labs reviewed. Medication based on GFR appropriate. Overall prognosis is poor. Job ID: [id number]
--- NOTE | 2018-04-27 12:35 | PQF ---
CLINICAL DOCUMENTATION IMPROVEMENT CLARIFICATION FORM: ICD-10 Updated PLEASE DO AN ADDENDUM TO THE PROGRESS NOTE WITH ANY DOCUMENTATION UPDATES OR ADDITIONS AND CARRY THROUGH TO DC SUMMARY. THANK YOU. DATE: 04/30/18 ATTN: DR. CEBALLOS Please exercise your independent, professional judgment in responding to the clarification form. Clinical indicators are provided on the bottom of this form for your review Please check appropriate box(s) to clarify if the following diagnosis has been ruled in or ruled out: "SEPSIS" [ ] Ruled in diagnosis [ ] Continue to treat [ ] Resolved [ x ] Ruled out diagnosis [ ] Cannot rule out diagnosis [ ] Other diagnosis [ ] Unable to determine In addition, please specify: Present on Admission (POA): [ ] Yes [ ] No [ ] Unable to determine For continuity of documentation, please document condition throughout progress notes and discharge summary. Thank You. CLINICAL INDICATORS - SIGNS / SYMPTOMS / LABS ER NOTE: " TRANSFER FROM [place] FOR ELEVATED TROP, HYPOXIA AND SEPSIS" WBC 3.4 GLUCOSE 157-172 RR 25 RISKS: PULMONARY EMBOLISM RANDOLPH ADVANCED AGE H/O RA HYPOXIA ELEVATED TROPONIN TREATMENT: CARDIAC MONITORING LEVAQUIN (04/26-PRESENT) [employer] Winform Viewer (This form is maintained as a part of the permanent medical record) 2014 [employer]. All Rights Reserved JANIE [email or web address] Office: [phone] [facility]
--- NOTE | 2018-04-27 14:01 | PRG ---
DATE OF SERVICE: 04/27/2018 SUBJECTIVE: The patient is sitting up in a chair, says she feels better. OBJECTIVE: VITAL SIGNS: Temperature 97.8, pulse 101, respirations 18, O2 saturation 99% on 1 L. HEENT: Unremarkable. NECK: No JVD. LUNGS: She has inspiratory crackles in both bases. CARDIAC: S1 and S2 regular. ABDOMEN: Soft. EXTREMITIES: No edema. LABORATORY: White blood cell count 5.2, hematocrit 28.6, and platelet count 180. Sodium 142, potassium 3.4, chloride 100, CO2 of 32, BUN 35, creatinine 1.9, glucose 157. ASSESSMENT: 1. Acute hypoxic respiratory failure. 2. Pulmonary embolism. 3. Pulmonary hypertension. 4. Fluid overload. PLAN: She continues on Eliquis for the pulmonary embolism. She continues antibiotics for bronchitis symptoms. She was given a dose of Lasix this morning. We will see how she responds to that. Her numbers on her chem 7 look a little prerenal, so I would be hesitant to leave her on scheduled Lasix. We will have a chemistry profile done tomorrow morning. Job ID: [id number]
--- NOTE | 2018-04-27 14:04 | PDOC.PN ---
- Subjective Encounter Start Date: 04/27/18 Encounter Start Time: 14:02 Doing better today than yesterday. Got up with PT. Still SOB with exertion. Tried to get off oxygen this morning. Could not. - Objective Resuscitation Status - Order Detail: 04/23/18 21:34 Resuscitation Status Routine Resuscitation Status: FULL: Full Resuscitation Vital Signs & Weight: Vital Signs (12 hours) Temp Pulse Pulse Pulse Resp BP BP 04/27/18 13:08 101 H 18 04/27/18 12:58 91 103 H 138/89 131/60 04/27/18 12:00 98.3 F 109 H 16 04/27/18 08:00 97.8 F 99 16 04/27/18 07:11 95 16 04/27/18 02:33 97.9 F 98 16 BP BP Pulse Ox Pulse Ox Pulse Ox 04/27/18 13:08 99 04/27/18 12:58 90 L 92 L 04/27/18 12:00 139/64 94 L 04/27/18 08:00 126/62 98 04/27/18 07:11 95 04/27/18 02:33 102/55 L 99 Weight Weight 218 lb I&O: 04/26/18 04/27/18 04/28/18 06:59 06:59 06:59 Intake Total 1810 1040 Output Total 1200 1600 Balance 610 -560 Result Diagrams: 04/27/18 04:41 04/27/18 04:41 Phys Exam - Physical Examination Constitutional: NAD Obese. Respiratory: no wheezing, no rales, no rhonchi, clear to auscultation bilateral Cardiovascular: RRR, no significant murmur Gastrointestinal: soft, non-tender, no distention, positive bowel sounds Musculoskeletal: no edema Neurological: non-focal Psychiatric: normal affect, A&O x 3 Skin: normal turgor Dx/Plan (1) Suspected pulmonary embolism Code(s): R09.89 - OTH SYMPTOMS AND SIGNS INVOLVING THE CIRC AND RESP SYSTEMS Status: Acute (2) Hypoxia Code(s): R09.02 - HYPOXEMIA Status: Acute (3) SOB (shortness of breath) Code(s): R06.02 - SHORTNESS OF BREATH Status: Acute (4) RANDOLPH (acute kidney injury) Code(s): N17.9 - ACUTE KIDNEY FAILURE, UNSPECIFIED Status: Acute (5) Acute on chronic diastolic CHF (congestive heart failure) Code(s): I50.33 - ACUTE ON CHRONIC DIASTOLIC (CONGESTIVE) HEART FAILURE Status : Acute (6) Bronchitis Code(s): J40 - BRONCHITIS, NOT SPECIFIED ACUTE OR CHRONIC Status: Acute - Plan * Tolerating Eliquis. Continue Eliquis loading dose. * Continue to attempt ambulation as tolerated. * Consult CM for home oxygen. * Patient lives with son. She feels like she will be able to manage going home in the morning with home oxygen. * Had dose of lasix this morning. * Lung exam much improved. No evidence of decompensated CHF now. * Stable kidney function.
[2018-04-28] MEDS: Levothyroxine Sodium 25 MCG TAB PO SCH (05:55)
[2018-04-28] MEDS: Levothyroxine Sodium 112 MCG TAB PO SCH (05:55)
[2018-04-28 06:23] LABS: Hemoglobin 9.6 g/dL (12.0-16.0); Platelet Count 200 thou/uL (130-400)
[2018-04-28 06:45] LABS: Anion Gap 14 mmol/L (10-20); BUN (Urea Nitrogen) 34 mg/dL (9.8-20.1); Calc. Creatinine Clearance 34 mL/min (70-130); Calcium 8.6 mg/dL (7.8-10.44); Carbon Dioxide 29 mmol/L (23-31); Chloride 100 mmol/L (98-107); Estimated GFR-MDRD 25; Glucose 107 mg/dL (83-110); Potassium 3.8 mmol/L (3.5-5.1); Sodium 139 mmol/L (136-145)
[2018-04-28] MEDS: Famotidine 20 MG TAB PO SCH ×2 (09:47→21:13)
[2018-04-28] MEDS: Folic Acid 1 MG TAB PO SCH (09:47)
[2018-04-28] MEDS: predniSONE 20 MG TAB PO SCH (09:47)
[2018-04-28] MEDS: Apixaban 5 MG TAB PO SCH ×2 (09:48→21:13)
[2018-04-28] MEDS: Aspirin 325 MG TAB PO SCH (09:48)
[2018-04-28] MEDS: Fluticasone Propionate Nasal Spray 16 gm Bottle NASAL SCH (09:48)
[2018-04-28] MEDS: Famotidine/PF 20 mg/2ml Vial SLOW IVP SCH (09:48)
[2018-04-28] MEDS: Furosemide 40 MG/4 ML VIAL SLOW IVP SCH (09:49)
[2018-04-28] MEDS: Pantoprazole 40 MG VIAL IVP SCH (09:53)
--- NOTE | 2018-04-28 12:35 | PDOC.PN ---
- Subjective Encounter Start Date: 04/28/18 Encounter Start Time: 10:00 Doing generally well. She was able to ambulate with cardiac rehab yesterday in the hallway. Walked a little with PT this morning. Still TRACY. Has decided she wants to try Rehab. She is still concerned that this is going to be a progressive problem for her. - Objective Resuscitation Status - Order Detail: 04/23/18 21:34 Resuscitation Status Routine Resuscitation Status: FULL: Full Resuscitation Vital Signs & Weight: Vital Signs (12 hours) Temp Pulse Pulse Pulse Pulse Resp BP 04/28/18 09:44 114 H 93 107 H 111/54 L 04/28/18 08:00 97.6 F 110 H 20 04/28/18 07:08 04/28/18 07:07 109 H 16 04/28/18 02:36 97.8 F 100 18 BP BP BP Pulse Ox Pulse Ox Pulse Ox Pulse Ox 04/28/18 09:44 130/61 95 95 93 L 04/28/18 08:00 127/55 L 95 04/28/18 07:08 94 L 04/28/18 07:07 04/28/18 02:36 129/62 95 Weight Weight 220 lb 4 oz I&O: 04/27/18 04/28/18 04/29/18 06:59 06:59 06:59 Intake Total 1040 640 24 Output Total 1600 1000 Balance -560 -360 24 Result Diagrams: 04/28/18 06:04 04/28/18 06:04 Phys Exam - Physical Examination Constitutional: NAD Respiratory: no wheezing, no rales, no rhonchi diminished. Cardiovascular: RRR, no significant murmur Gastrointestinal: soft, non-tender, no distention, positive bowel sounds Musculoskeletal: no edema Neurological: non-focal Did not recognize me from yesterday. Psychiatric: normal affect, A&O x 3 Dx/Plan (1) Acute respiratory failure with hypoxia Code(s): J96.01 - ACUTE RESPIRATORY FAILURE WITH HYPOXIA Status: Acute Comment: Secondary to PE. Still requiring oxygen. (2) Pulmonary emboli Code(s): I26.99 - OTHER PULMONARY EMBOLISM WITHOUT ACUTE COR PULMONALE Status : Acute Comment: High probability VQ (3) Acute on chronic kidney failure Code(s): N17.9 - ACUTE KIDNEY FAILURE, UNSPECIFIED; N18.9 - CHRONIC KIDNEY DISEASE, UNSPECIFIED Status: Acute Qualifiers: Acute renal failure type: unspecified Chronic kidney disease stage: stage 3 (moderate) Qualified Code(s): N17.9 - Acute kidney failure, unspecified; N18.3 - Chronic kidney disease, stage 3 (moderate) (4) SOB (shortness of breath) Code(s): R06.02 - SHORTNESS OF BREATH Status: Acute (5) Acute on chronic diastolic CHF (congestive heart failure) Code(s): I50.33 - ACUTE ON CHRONIC DIASTOLIC (CONGESTIVE) HEART FAILURE Status : Acute (6) Bronchitis Code(s): J40 - BRONCHITIS, NOT SPECIFIED ACUTE OR CHRONIC Status: Acute Comment: Marti. (7) Morbid obesity with BMI of 40.0-44.9, adult Code(s): E66.01 - MORBID (SEVERE) OBESITY DUE TO EXCESS CALORIES; Z68.41 - BODY MASS INDEX (BMI) 40.0-44.9, ADULT Status: Acute (8) Rheumatoid arthritis Code(s): M06.9 - RHEUMATOID ARTHRITIS, UNSPECIFIED Status: Acute Comment: On MTX injections. - Plan * Continue Eliquis. * Continue Oxygen * COntinue PT. * Rehab consult. * Reassured patient that this was an isolated event that is not a progressive disease. * Will resume her MTX if she has her daughter bring it.
--- NOTE | 2018-04-28 12:42 | PRG ---
DATE OF SERVICE: 04/28/2018 SUBJECTIVE: An 83-year-old female, being seen for acute kidney injury. The patient denies any nausea, vomiting, or chest pain. OBJECTIVE: CONSTITUTIONAL: The patient is awake and alert. VITAL SIGNS: Afebrile, pulse 109, breathing 16, blood pressure 130/61. GENERAL APPEARANCE AND MENTAL STATUS: Fair. HEAD/NECK: Normocephalic. Atraumatic. EYES: EOMI. No deformity. EARS: Clear. No ulcers. NOSE: Intact. No lesions. MOUTH: Clear. No discharge. THROAT: Clear. No exudate. LUNGS: Clear. No crackles. CARDIAC: S1, S2. No rub. ABDOMEN: Benign. Bowel sounds positive. GENITALIA/RECTUM: Meek absent. BACK/EXTREMITIES: Edema 0+. NEUROLOGICAL: Alert and motor intact. SKIN: LYMPHATICS: LABORATORY DATA: Labs show hemoglobin 9.6, creatinine 1.9. ASSESSMENT: 1. Acute kidney injury with chronic kidney disease stage 4, stable. 2. Hypertension, stable. 3. Anemia, stable. 4. Hyperkalemia, stable. No indication for dialysis. Job ID: [id number]
--- NOTE | 2018-04-28 13:27 | PRG ---
DATE OF SERVICE: SUBJECTIVE: An 83-year-old female, who denies any difficulty breathing. She stated no coughing or wheezing. OBJECTIVE: VITAL SIGNS: Saturations are 93%, on supplemental oxygen. Blood pressure 130/54, pulse 95, temperature , respiratory rate 20. CHEST: Decreased breath sounds. No wheezing. CARDIAC: Normal S1, S2. No gallops. ABDOMEN: No masses. LABORATORY DATA: Creatinine 1.32. IMPRESSION: 1. Renal failure. 2. Respiratory failure. 3. Rheumatoid arthritis. 4. Sleep apnea. PLAN: Continue Eliquis. PT, supportive care. Job ID: [id number]
[2018-04-28] MEDS ORDERED: METHOTREXATE SODIUM IM SCH (14:00)
[2018-04-28] MEDS ORDERED: ADMIXTURE FEE IM SCH (14:00)
[2018-04-29] MEDS: Levothyroxine Sodium 25 MCG TAB PO SCH (05:34)
[2018-04-29] MEDS: Levothyroxine Sodium 112 MCG TAB PO SCH (05:34)
[2018-04-29 06:06] LABS: Hemoglobin 9.8 g/dL (12.0-16.0); Platelet Count 220 thou/uL (130-400)
[2018-04-29] MEDS ORDERED: Apixaban 2.5 MG TAB PO SCH (09:00)
[2018-04-29] MEDS: Famotidine 20 MG TAB PO SCH (09:37)
[2018-04-29] MEDS: Aspirin 325 MG TAB PO SCH (09:37)
[2018-04-29] MEDS: predniSONE 20 MG TAB PO SCH (09:37)
[2018-04-29] MEDS: Folic Acid 1 MG TAB PO SCH (09:37)
[2018-04-29] MEDS: Furosemide 40 MG/4 ML VIAL SLOW IVP SCH (09:38)
[2018-04-29] MEDS: Famotidine/PF 20 mg/2ml Vial SLOW IVP SCH (09:45)
[2018-04-29] MEDS: Fluticasone Propionate Nasal Spray 16 gm Bottle NASAL SCH (10:42)
[2018-04-29 10:48] LABS: Hemoglobin 10.1 g/dL (12.0-16.0)
[2018-04-29 11:05] LABS: Anion Gap 15 mmol/L (10-20); BUN (Urea Nitrogen) 37 mg/dL (9.8-20.1); Calc. Creatinine Clearance 30 mL/min (70-130); Calcium 8.4 mg/dL (7.8-10.44); Carbon Dioxide 28 mmol/L (23-31); Chloride 99 mmol/L (98-107); Estimated GFR-MDRD 22; Glucose 125 mg/dL (83-110); Potassium 3.9 mmol/L (3.5-5.1); Sodium 138 mmol/L (136-145)
[2018-04-29 11:22] VITALS: TEMP 97.8
--- NOTE | 2018-04-29 11:24 | PRG ---
DATE OF SERVICE: 04/29/2018 SUBJECTIVE: An 83-year-old female, being seen for acute kidney injury. The patient denies any nausea, vomiting, or chest pain. OBJECTIVE: CONSTITUTIONAL: The patient is awake and alert. VITAL SIGNS: Afebrile. Pulse 93, breathing 16, blood pressure 121/57. GENERAL APPEARANCE AND MENTAL STATUS: Fair. HEAD/NECK: Normocephalic. Atraumatic. EYES: EOMI. No deformity. EARS: Clear. No ulcers. NOSE: Intact. No lesions. MOUTH: Clear. No discharge. THROAT: Clear. No exudate. LUNGS: Clear. No crackles. CARDIAC: S1, S2. No rub. ABDOMEN: Benign. Bowel sounds positive. GENITALIA/RECTUM: Meek absent. BACK/EXTREMITIES: Edema 0+. NEUROLOGICAL: Alert and motor intact. SKIN: LYMPHATICS: LABORATORY DATA: Labs show hemoglobin 10.1, creatinine 1.9. ASSESSMENT AND PLAN: 1. Acute kidney injury with chronic kidney disease, stable. The patient has chronic kidney disease stage 4. Hold Lasix 2. Anemia, stable. 3. Medication based on GFR hodl methotrexate. 4. No indication for dialysis. 5. We will follow renal function closely. Job ID: [id number] MTDD
--- NOTE | 2018-04-29 13:42 | PDOC.PN ---
- Subjective Encounter Start Date: 04/29/18 Encounter Start Time: 09:00 Doing well. No new complaints today. Did ask the nurse for some type of Bengay cream for sore muscles. - Objective Resuscitation Status - Order Detail: 04/23/18 21:34 Resuscitation Status Routine Resuscitation Status: FULL: Full Resuscitation Vital Signs & Weight: Vital Signs (12 hours) Temp Pulse Pulse Pulse Resp BP BP 04/29/18 12:03 95 16 04/29/18 11:22 97.8 F 98 18 04/29/18 09:53 99 102 H 130/59 L 148/63 H 04/29/18 08:00 97.8 F 107 H 18 04/29/18 06:33 93 16 04/29/18 04:00 97.7 F 111 H 21 H BP BP Pulse Ox Pulse Ox 04/29/18 12:03 94 L 04/29/18 11:22 119/56 L 96 04/29/18 09:53 95 04/29/18 08:00 130/59 L 95 04/29/18 06:33 94 L 04/29/18 04:00 121/57 L 92 L Weight Weight 220 lb 5 oz I&O: 04/28/18 04/29/18 04/30/18 06:59 06:59 06:59 Intake Total 640 344 Output Total 1000 Balance -360 344 Result Diagrams: 04/29/18 10:23 04/29/18 10:23 Phys Exam - Physical Examination Constitutional: NAD Morbidly obese. Respiratory: no wheezing, no rales, no rhonchi, clear to auscultation bilateral Cardiovascular: RRR, no significant murmur Gastrointestinal: soft, non-tender, no distention, positive bowel sounds Trace edema Psychiatric: normal affect Skin: normal turgor Dx/Plan (1) Acute respiratory failure with hypoxia Code(s): J96.01 - ACUTE RESPIRATORY FAILURE WITH HYPOXIA Status: Acute Comment: Secondary to PE. Still requiring oxygen. (2) Pulmonary emboli Code(s): I26.99 - OTHER PULMONARY EMBOLISM WITHOUT ACUTE COR PULMONALE Status : Acute Comment: High probability VQ (3) Acute on chronic kidney failure Code(s): N17.9 - ACUTE KIDNEY FAILURE, UNSPECIFIED; N18.9 - CHRONIC KIDNEY DISEASE, UNSPECIFIED Status: Acute Qualifiers: Acute renal failure type: unspecified Chronic kidney disease stage: stage 3 (moderate) Qualified Code(s): N17.9 - Acute kidney failure, unspecified; N18.3 - Chronic kidney disease, stage 3 (moderate) Plan: Creatinine slightly higher today. Discussed with nephrology. Will hold the IV lasix. He will continue to monitor. (4) SOB (shortness of breath) Code(s): R06.02 - SHORTNESS OF BREATH Status: Acute (5) Acute on chronic diastolic CHF (congestive heart failure) Code(s): I50.33 - ACUTE ON CHRONIC DIASTOLIC (CONGESTIVE) HEART FAILURE Status : Acute (6) Bronchitis Code(s): J40 - BRONCHITIS, NOT SPECIFIED ACUTE OR CHRONIC Status: Acute Comment: Levaquin to end on 04/30/18. (7) Morbid obesity with BMI of 40.0-44.9, adult Code(s): E66.01 - MORBID (SEVERE) OBESITY DUE TO EXCESS CALORIES; Z68.41 - BODY MASS INDEX (BMI) 40.0-44.9, ADULT Status: Acute (8) Rheumatoid arthritis Code(s): M06.9 - RHEUMATOID ARTHRITIS, UNSPECIFIED Status: Acute Comment: On MTX injections. - Plan * Continue with Eliquis. * Hold Lasix, discussed renal function with nephrology. * Rehab consult pending. * May transfer to [facility] when accepted.
[2018-04-29] MEDS ORDERED: Methyl Salicylate/Menthol 85 GM TUBE TOP PRN (13:49)
[2018-04-29 18:17] VITALS: BP 121/56
[2018-04-30] MEDS ORDERED: Famotidine 20 MG TAB PO SCH (09:00)
--- NOTE | 2018-04-30 10:31 | DIS ---
DATE OF ADMISSION: 04/24/2018 DATE OF DISCHARGE: 04/29/2018 DISCHARGE DIAGNOSES: 1. Pulmonary emboli. 2. Chronic kidney disease. 3. Hypoxia. 4. Shortness of breath. 5. Acute on chronic renal insufficiency. 6. Acute on chronic diastolic congestive heart failure. 7. Bronchitis. HISTORY OF PRESENT ILLNESS: The patient is an 83-year-old female, who presented initially to the emergency department at [facility], reporting some dyspnea on exertion. Her initial workup was notable for borderline elevation of her troponins also with an elevated D-dimer. She was given nebulizer treatment and transferred to our facility. The patient did have some right upper quadrant abdominal pain as well and apparently had a CT scan done there. In our facility, the patient was seen in consultation by Nephrology, Cardiology, and Pulmonology. The patient underwent venogram of the lower extremities, which was negative for DVT. She did undergo a V/Q scan, which was high probability for pulmonary emboli with multiple V/Q mismatches. She also had a renal ultrasound, which was unremarkable. The patient was started on Eliquis, but had acute hypoxic respiratory failure requiring supplemental oxygen. The patient remained in the hospital for several days and while she attempted to increase her activity, however, she continued to have significant dyspnea on exertion and hypoxia requiring continued use of oxygen. Ultimately, it was felt that the patient would benefit from rehab while she continued on the Eliquis. The patient strongly considered trying to go home, but she was with her son and [id number] and felt like her situation was such that she would require the rehab. Her renal function did not normalize, but did stabilize. She also appeared to have some excessive fluid retention and required small amount of diuretics while being careful to monitor her renal function. Ultimately, the patient was accepted at the inpatient rehab to be discharged there. The patient had some mild cough with negative chest x-ray findings consistent with bronchitis, which was treated with oral antibiotics. PHYSICAL EXAMINATION: VITAL SIGNS: On the day of discharge, temperature 97.8, pulse 95-101, respirations 16-18, O2 saturation 94% on 1 L nasal cannula, and BP 121/56. GENERAL APPEARANCE: Morbidly obese, age-appropriate female, in no distress. She is awake, alert, pleasant, and cooperative. HEENT: PERRL. No acute lesions. HEART: Regular rate and rhythm without murmurs, gallops, or rubs. LUNGS: Clear to auscultation bilaterally with good chest wall expansion and air exchange. ABDOMEN: Soft, nontender, and nondistended. Positive bowel sounds. No masses. No organomegaly. EXTREMITIES: Warm and dry with trace edema. DISPOSITION: The patient is discharged to inpatient rehab facility. ACTIVITY: As tolerated. DIET: She will be on a regular diet. She will have OT and PT. DISCHARGE MEDICATIONS: She will be on, 1. DuoNeb. 2. Tylenol. 3. Eliquis 10 mg b.i.d. for 7 days and then converted to 5 mg b.i.d. 4. Aspirin 325 daily. 5. Dulcolax p.r.n. 6. Calcium carbonate p.r.n. 7. Pepcid 20 mg daily. 8. Levaquin 500 mg daily for bronchitis symptoms. 9. Senokot. 10. Ambien. 11. Valsartan. 12. Synthroid. 13. Folic acid. 14. Fluticasone. 15. Ellipta. 16. Ventolin inhaler. 17. Metoprolol/hydrochlorothiazide. 18. Tizanidine. 19. Weekly methotrexate. She will have continued care at the inpatient rehab facility with Dr. Aurelia Pace. Job ID: [id number]
[2018-05-05] MEDS ORDERED: METHOTREXATE SODIUM IJ SCH (09:00)
== END 2018-04-29 21:00 | DRG 291 ==
LOC: ERS 19:56 → ERHOLD 04-24 → 2NO 04-24 14:41
PROVIDERS: ADMIT Internal Medicine; ATTEND Internal Medicine
DX: I13.0 Hypertensive heart and chronic kidney disease with heart failure and stage 1 through stage 4 chronic kidney disease, or unspecified chronic kidney disease (principal); I26.99 Other pulmonary embolism without acute cor pulmonale; I50.33 Acute on chronic diastolic (congestive) heart failure; J96.01 Acute respiratory failure with hypoxia; N17.9 Acute kidney failure, unspecified; Z68.41 Body mass index [BMI] 40.0-44.9, adult; M06.9 Rheumatoid arthritis, unspecified; E03.9 Hypothyroidism, unspecified; E78.5 Hyperlipidemia, unspecified; J45.909 Unspecified asthma, uncomplicated; G89.29 Other chronic pain; M54.5 Low back pain; M79.7 Fibromyalgia; N18.3 Chronic kidney disease, stage 3 (moderate); E66.01 Morbid (severe) obesity due to excess calories; K59.00 Constipation, unspecified; D64.9 Anemia, unspecified; E87.6 Hypokalemia; Z87.891 Personal history of nicotine dependence; Z87.11 Personal history of peptic ulcer disease; Z90.49 Acquired absence of other specified parts of digestive tract
CPT/HCPCS: 36415; 76770; 78582; 80048; 80053; 80061; 83880; 84439; 84443; 84484; 85014; 85018; 85025; 85049; 85379; 85610; 85730; 86850; 86900; 86901; 93306; 93798; 93970; 94640; 94760; 96374; A9540; A9558; C9113; J1644; J1650; J1940; J7506; J7620; J9250; S0028

== ENCOUNTER 2018-11-04 11:52 | Inpatient (IN) | payer MEDICARE, OTHER ==
[2018-11-04 12:35] LABS: #Eosinphils 0.1 thou/uL (0.0-0.7); #Lymphocytes 1.4 thou/uL (1.20-3.40); #Monocytes 0.5 thou/uL (0.11-0.59); #Neutrophils 2.3 thou/uL (1.40-6.50); %Basophils 0.9 % (0.0-1.0); %Eosinophils 2.3 % (0.0-10.0); %Lymphocytes 32.7 % (21.0-51.0); %Monocytes 10.9 % (0.0-10.0); %Neutrophils 53.2 % (42.0-75.0); Hemoglobin 11.2 g/dL (12.0-16.0); Mean Corpuscular HGB CONC 31.4 g/dL (32.0-36.0); Mean Corpuscular Hemoglobin 28.8 pg (27.0-31.0); Mean Corpuscular Volume 91.7 fL (78.0-98.0); Mean Platelet Volume 7.4 fL (7.4-10.4); Platelet Count 158 thou/uL (130-400); RBC Distribution Width 13.5 % (11.5-14.5); White Blood Cell (WBC) Count 4.4 thou/uL (4.8-10.8)
[2018-11-04 12:56] LABS: ALT (SGPT) 26 U/L (8-55); AST (SGOT) 23 U/L (5-34); Albumin 3.7 g/dL (3.4-4.8); Alkaline Phosphatase 57 U/L (40-150); Anion Gap 11 mmol/L (10-20); BUN (Urea Nitrogen) 29 mg/dL (9.8-20.1); Bilirubin, Total 0.4 mg/dL (0.2-1.2); Calc. Creatinine Clearance 0 mL/min (70-130); Calcium 9.7 mg/dL (7.8-10.44); Carbon Dioxide 31 mmol/L (23-31); Chloride 105 mmol/L (98-107); Estimated GFR-MDRD 37; Globulin 3.1 g/dL (2.4-3.5); Glucose 102 mg/dL (83-110); Potassium 3.9 mmol/L (3.5-5.1); Protein, Total 6.8 g/dL (6.0-8.3); Sodium 143 mmol/L (136-145)
--- NOTE | 2018-11-04 13:33 | RAD ---
RADIOGRAPH CHEST 1 VIEW: 11/04/18 HISTORY: 83-year-old female presents with complete heart block. FINDINGS: There is no air space density, pulmonary edema, or pneumothorax. The lateral costophrenic angles are sharp. There is a defibrillation paddle overlying the right lung. IMPRESSION: No acute pulmonary findings. jn [] POS: [facility]
[2018-11-04 15:26] LABS: Troponin I 0.019 ng/mL (< 0.028)
[2018-11-04] MEDS ORDERED: Nitroglycerin 0.4 MG TAB (25 Tab Bottle) PO PRN (15:36)
[2018-11-04] MEDS ORDERED: Ondansetron ODT 4 MG TAB PO PRN (15:36)
[2018-11-04] MEDS ORDERED: tiZANidine HCl 4 MG TAB PO PRN (15:41)
[2018-11-04] MEDS ORDERED: DOBUTamine 500 mg/250 ml 250 ML IVPB SCH (15:45)
--- NOTE | 2018-11-04 16:54 | HP ---
PRIMARY CARE PROVIDER: Jennifer Argueta, physician dental ceramist assistant. CHIEF COMPLAINT: Low heart rate. HISTORY OF PRESENT ILLNESS: This is an 83-year-old female with history of hypothyroidism; hypertension; pulmonary embolus, on full anticoagulation; dyslipidemia; asthma; chronic low back pain; rheumatoid arthritis; and chronic kidney disease, stage 3, who presents to the emergency room from the medical underwriter's office due to low heart rate. The patient reports the onset around 2 weeks ago. She noted that her heart rate went from the 60s to about the 20 to 30s. She went to see her medical underwriter, Dr. Garsia today and was told that her heart rate was abnormal and sent here. She states at home that her oxygen levels have been normal. She uses oxygen at night after a diagnosis of pulmonary embolus at the beginning of the year. She has noticed heaviness in her chest and a feeling like she was in a fog as well as a feeling like she was going to pass out, but has not. She denies any precipitating factors or relieving factors. She denies any chest pain, nausea, or vomiting. She denies any other symptoms associated with this or prior history. In the emergency room, the patient confirmed to be either in second-degree type 2 AV block or third-degree complete heart block, and hospitalist called for admission. ALLERGIES: NO KNOWN DRUG ALLERGIES. MEDICATIONS: Current medications are unknown. Reviewed the list from her last hospital discharge in April of this year. She thinks that it is correct. 1. Valsartan 160 mg daily. 2. Levothyroxine 137 mcg daily. 3. Folic acid 1 mg daily. 4. Arnuity Ellipta nasal spray daily. 5. Ventolin inhaler 2 puffs every 6 hours as needed. 6. Metoprolol/hydrochlorothiazide 50/12.5 one daily. 7. Tizanidine 2 mg at bedtime as needed. 8. Eliquis 5 mg b.i.d. PAST MEDICAL HISTORY: 1. Chronic kidney disease, stage 3, followed by Dr. Beckman. 2. Hypertension. 3. Pulmonary embolus, followed by Dr. De Los Santos of Pulmonology. 4. Dyslipidemia. 5. Asthma. 6. Postherpetic neuralgia. 7. Rheumatoid arthritis and chronic back pain, followed by Dr. Mark of Rheumatology. 8. Hypothyroidism. PAST SURGICAL HISTORY: 1. Hysterectomy. 2. Cholecystectomy. SOCIAL HISTORY: The patient lives with her son and [id number]-rom. Her wlfzsrqi-te-dqw, Eliz is her surrogate decision maker, phone #[phone]. She denies any alcohol or tobacco. FAMILY HISTORY: Significant for thyroid problems and cancer. REVIEW OF SYSTEMS: Positive for skin rash on her face and back with itching over the past month, bright red blood in her stool as well as with wiping, that she thinks is hemorrhoids. It has been ongoing for 3 to 5 days. It is negative for constipation, abdominal pain, nausea, vomiting, or chest pain. All remaining review of systems are reviewed and negative. PHYSICAL EXAMINATION: VITAL SIGNS: Blood pressure 169/74. Pulse 63; on arrival, it was 36. Respirations 20. Saturations are 100% on 2 L of oxygen. Temperature is 98.6. GENERAL: Awake, alert, and responsive, in no apparent distress. Able to speak in full sentences. HEENT: Pupils are equal and round. No scleral icterus. Oral mucosa is pink and moist. NECK: Supple. Some mild tenderness to palpation on the sternocleidomastoid on the left side without palpable defect. LYMPHATICS: No palpable cervical or supraclavicular lymphadenopathy. LUNGS: Clear to auscultation bilaterally. No audible wheezing, rhonchi, or rales. HEART: Normal S1 and S2. No significant murmur. ABDOMEN: Soft. Present bowel sounds. Nontender and nondistended. EXTREMITIES: She has bilateral nonpitting edema. VASCULAR: 2+ dorsalis pedis pulses. SKIN: Some erythematous papules and small plaques on the right side of her face. NEUROLOGIC: No gross deficits. PSYCHIATRIC: The patient is euthymic. Alert and oriented x4. IMAGING STUDIES: EKG, personally reviewed; second-degree with a 2:1 AV block versus third-degree block. Chest x-ray, personally reviewed; negative for acute abnormality. LABORATORY DATA: Today, CBC; 4.4, 11.2, 35.8, 158. Metabolic panel; 143, 3.9, 105, 31, 29, 1.37, 102. LFTs, negative. BNP 834. Troponin is negative x2. IMPRESSION: 1. 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 2. Hypertension, uncontrolled. 3. Chronic kidney disease, stage 3, stable. 4. Bright red blood in stool, needs further evaluation - inpatient vs outpatient depending on clinical course and amount here. 5. History of pulmonary embolus, diagnosed at beginning of this year, on full anticoagulation with Eliquis. 6. History of asthma, stable. 7. Rheumatoid arthritis and chronic back pain. 8. Hypothyroidism. 9. Postherpetic neuralgia. PLAN: 1. Admission to the ICU. 2. Cardiology consultation, discussed with Dr. Barlow, and he anticipates a pacemaker placement tomorrow with Dr. Arellano. He recommends we start dobutamine at 2.5 mcg/kg/minute and hold Eliquis. 3. Manage blood pressures. We will order her valsartan. Monitor her renal function. 4. We will order p.r.n. DuoNeb for the history of asthma. 5. Holding her beta-fani, hydrochlorothiazide for now. We will monitor blood pressures, and valsartan is ordered. 6. Check TSH and Free T4 to ensure the dose of levothyroxine is appropriate. 7. We will order p.r.n. tizanidine. 8. Monitor for any change of breathing given that the Eliquis is being held. Resume per Cardiology. 9. Monitor for blood in stool and detemine inpatient vs outpatient workup of reported bright red blood in stool. 10. DVT prophylaxis. She is fully anticoagulated with Eliquis with her last dose this morning. 11. GI prophylaxis not indicated. 12. Code status is full, although the patient does desire to revisit this after the procedure, but desires to be full code until then. 13. Surrogate decision maker is her yikdivkb-ve-vvl, Eliz. 14. The patient is at high risk given age, comorbidities, and current presentation. 15. Reviewed the plan of care with the patient and her rymqiyma-gd-ssp. No questions or further needs at end of evaluation. Job ID: [id number] [facility]
[2018-11-04 17:46] LABS: Base Excess-Venous 8.5 mmol/L (-2.0 to 3.0); Bicarbonate (HCO3v) 36.6 mmol/L (22.0-28.0); CO2 Tension (PvCO2) 66.5 mmHg (40.0-50.0); Calcium, Ionized 1.25 mmol/L (See Comments:); Chloride 104 mmol/L (98-107); Hemoglobin - Calc 13.1 g/dL (12.0-16.0); Potassium 4.3 mmol/L (3.5-5.1); Sodium 144 mmol/L (138-145); T. Carbon Dioxide 38.6 mmol/L (22.0-28.0); vO2 Saturation-calc 30.8 % (60.0-85.0)
[2018-11-04 18:36] VITALS: BMI 39.9
[2018-11-04 19:16] LABS: Troponin I Less than 0.010 ng/mL (< 0.028)
[2018-11-04] MEDS ORDERED: Furosemide 20 MG/2 ML VIAL SLOW IVP SCH (19:30)
[2018-11-04] MEDS ORDERED: Potassium Chloride 20 MEQ TAB PO SCH (19:45)
[2018-11-04] MEDS: Valsartan 80 MG TAB PO SCH (20:40)
--- NOTE | 2018-11-05 00:08 | CON ---
DATE OF CONSULTATION: 11/04/2018 REASON FOR CONSULTATION: AV block. HISTORY OF PRESENT ILLNESS: Ms. Sanon is an 83-year-old woman, patient of Dr. Joel Garsia. The patient presented to the office complaining of weakness and fatigue which have been going on for over a week. In fact, she thinks about 10 days ago. Her EKG showed a 2:1 AV block. PAST MEDICAL HISTORY: 1. Hypertension. 2. Hypercholesterolemia. 3. History of pulmonary embolism in 2018, for which she is on Eliquis. FAMILY HISTORY: Mother . Father . CURRENT MEDICATIONS: Prior to admission; 1. Toprol-XL 50 mg a day. 2. Furosemide 40 mg a day. 3. Sulfasalazine. 4. Valsartan. 5. Eliquis 5 mg twice a day, took a dose this morning. 6. Diovan once a day, took this morning. SOCIAL HISTORY: No alcohol or tobacco currently. REVIEW OF SYSTEMS: CONSTITUTIONAL: No significant weight gain or loss. VISION: No changes. HEARING: No changes. PULMONARY: No cough or wheezing. GASTROINTESTINAL: No nausea, vomiting, or diarrhea. SKIN: No rashes. IMAGING/LABORATORY DATA: EKG earlier showed a 2:1 AV block with heart rate in the 30s. Potassium is 4.3. Troponin levels were negative. BNP 834. Echocardiogram showed the ejection fraction of 55%. ASSESSMENT: 1. Symptomatic 2:1 atrioventricular block. 2. Hypertension. PLAN: 1. She is on intravenous dobutamine. Her heart rate is in the 80s with that now. 2. We gave her an extra dose of valsartan and furosemide. 3. Tentatively plan for pacemaker insertion on Friday, could be done earlier if needed. We certainly did not want to do it today if at all possible to reduce risk of bleeding. The patient will be kept in the intensive care unit overnight to be seen by Dr. Garsia tomorrow. Job ID: [id number]
[2018-11-05] MEDS ORDERED: DOPamine 400 MG/D5W 250 ML 250 ML IVPB PRN (01:02)
[2018-11-05] MEDS: Levothyroxine Sodium 112 MCG TAB PO SCH (05:27)
[2018-11-05] MEDS: Levothyroxine Sodium 25 MCG TAB PO SCH (05:27)
[2018-11-05 05:44] LABS: #Eosinphils 0.1 thou/uL (0.0-0.7); #Lymphocytes 1.4 thou/uL (1.20-3.40); #Monocytes 0.7 thou/uL (0.11-0.59); #Neutrophils 3.5 thou/uL (1.40-6.50); %Basophils 0.5 % (0.0-1.0); %Eosinophils 1.3 % (0.0-10.0); %Lymphocytes 24.6 % (21.0-51.0); %Monocytes 12.1 % (0.0-10.0); %Neutrophils 61.5 % (42.0-75.0); Hemoglobin 11.2 g/dL (12.0-16.0); Mean Corpuscular HGB CONC 30.8 g/dL (32.0-36.0); Mean Corpuscular Hemoglobin 28.9 pg (27.0-31.0); Mean Corpuscular Volume 93.8 fL (78.0-98.0); Mean Platelet Volume 7.1 fL (7.4-10.4); Platelet Count 155 thou/uL (130-400); RBC Distribution Width 13.8 % (11.5-14.5); Red Blood Cell (RBC) Count 3.87 mill/uL (4.20-5.40); White Blood Cell (WBC) Count 5.7 thou/uL (4.8-10.8)
[2018-11-05] MEDS ORDERED: Levothyroxine Sodium 125 MCG TAB PO SCH (06:00)
[2018-11-05 06:11] LABS: Anion Gap 13 mmol/L (10-20); BUN (Urea Nitrogen) 28 mg/dL (9.8-20.1); Calc. Creatinine Clearance 41 mL/min (70-130); Calcium 9.2 mg/dL (7.8-10.44); Carbon Dioxide 30 mmol/L (23-31); Chloride 105 mmol/L (98-107); Estimated GFR-MDRD 31; Glucose 144 mg/dL (83-110); Potassium 4.8 mmol/L (3.5-5.1); Sodium 143 mmol/L (136-145)
[2018-11-05 06:22] LABS: Thyroid Stimulating Hormone 0.9055 uIU/mL (0.35-4.94)
[2018-11-05 07:14] LABS: Free T4 (Free Thyroxine) 1.04 ng/dL (0.70-1.48)
[2018-11-05] MEDS: Valsartan 80 MG TAB PO SCH ×2 (08:43→21:26)
[2018-11-05] MEDS ORDERED: Valsartan 80 MG TAB PO SCH (09:00)
[2018-11-05 09:34] LABS: Magnesium 1.7 mg/dL (1.6-2.6); Phosphorus 3.8 mg/dL (2.3-4.7)
[2018-11-05] MEDS: Sodium Chloride 0.9% 1,000 ML IV SCH ×2 (11:12→18:27)
[2018-11-05] MEDS ORDERED: Mag-Al 1200 mg/1200 mg/30 ML UDCUP PO PRN (11:43)
[2018-11-05] MEDS ORDERED: Calcium Carbonate 500 MG ChewTAB PO PRN (11:43)
[2018-11-05] MEDS ORDERED: tiZANidine HCl 4 MG TAB PO PRN (14:25)
[2018-11-05] MEDS ORDERED: Pramipexole Di-HCl 0.125 MG TAB PO SCH (14:30)
--- NOTE | 2018-11-05 17:49 | PRG ---
DATE OF SERVICE: 11/05/2018 SUBJECTIVE: An 83-year-old white female with hypertension, hyperlipidemia, and history of pulmonary embolism in 2018, currently on Eliquis, presented to the emergency room from her piping blocker's office due to bradycardia. She also noticed some heaviness in her chest along with near syncopal episodes. She was admitted to the intensive care unit with a diagnosis of high-degree AV block. She was started on dobutamine drip. Later on last night, dopamine was added. At this time, dopamine has been discontinued by Cardiology. Eliquis is currently on hold. The patient denies any chest pain, shortness of breath, or palpitations at this time. Symptomatically, she feels better. REVIEW OF SYSTEMS: The patient is complaining of mild heartburn. All other review of systems were reviewed and were found negative. OBJECTIVE: VITAL SIGNS: Temperature 97.8, pulse rate of 79 on dobutamine, blood pressure 158/55, respirations of 22, and O2 saturation 98% on room air. GENERAL: An 83-year-old female, in no apparent distress. LUNGS: Clear to auscultation bilaterally. No wheezing, rales, or rhonchi. HEART: S1 and S2 present. Regular rate and rhythm. No rubs or gallops appreciated. ABDOMEN: Soft and nontender. Bowel sounds present. No rebound or guarding. EXTREMITIES: No edema or calf tenderness. NEUROLOGIC: Grossly nonfocal. Moves all 4 extremities. PSYCHIATRIC: Alert, awake, and oriented x3. Normal affect. LABORATORY FINDINGS: WBC 5.7, hemoglobin 11.2. Chemistries showed sodium 143, potassium 4.8, chloride 105, bicarbonate 30, BUN 28, creatinine 1.57, magnesium 1.7, phosphorus 3.8. TSH was normal. IMAGING STUDIES: Chest x-ray by my review was negative for infiltrate. EKG by my review showed sinus rhythm/sinus bradycardia. IMPRESSION: 1. High-degree AV block. 2. Near syncope secondary to #1. 3. Hypertension. 4. Chronic kidney disease stage 3. 5. History of pulmonary embolism, currently on anticoagulation. 6. Mild intermittent asthma. 7. Rheumatoid arthritis. 8. Hypothyroidism. 9. Chronic low back pain. 10. Postherpetic neuralgia. 11. Obesity with a BMI of 39.9. PLAN: The patient will remain on dobutamine drip. She will undergo pacemaker placement tomorrow. Eliquis is currently on hold. Beta blockers are currently on hold. We will continue levothyroxine. We will resume Mirapex. Continue Diovan. Recheck labs in a.m. Job ID: [id number]
[2018-11-05] MEDS: Acetaminophen 325 MG TAB PO PRN (21:26)
[2018-11-05] MEDS ORDERED: Lorazepam 0.5 MG TAB PO SCH (22:30)
--- NOTE | 2018-11-05 23:32 | CON ---
DATE OF CONSULTATION: 11/05/2018 SERVICE: Pulmonary Medicine. INTERVAL HISTORY: The patient was in her usual state of health until about 2 to 3 weeks prior to admission when she started having increasing fatigue, weakness, and started having some mentation issues. She is brought to the hospital and her blood pressures were marginal. She was discovered to be in complete heart block. She was placed on some dobutamine. Her blood pressure and her heart rate both improved. Overnight, the family suggesting that she has returned to her usual state of health. She denies any current fevers, cough, nausea, vomiting. She is not having any shortness of breath. She had a sleep study that was performed. We actually have not reviewed the results of that today. She was supposed to see me back in clinic with pulmonary function studies, but because the machine was down, her followup appointment had been rescheduled. PAST MEDICAL HISTORY: 1. Chronic hypoxic respiratory failure, resolved. 2. History of thromboembolic disease (PE in March 2018). 3. Dyslipidemia. 4. Hypertension. 5. Hypothyroidism. 6. Chronic low back pain. 7. Ankylosing spondylitis. 8. Fibromyalgia. 9. Obstructive lung disease, possible. 10. Vitamin D deficiency. PAST SURGICAL HISTORY: 1. Hysterectomy. 2. Cholecystectomy. FAMILY HISTORY: Noncontributory. SOCIAL HISTORY: Negative for alcohol, tobacco, or illicit drug use. She has no exposure to chemicals, dust, asbestos, or tuberculosis. ALLERGIES: NO KNOWN DRUG ALLERGIES. MEDICATIONS: List of her inpatient medications were reviewed. No specific updates were made at this time. REVIEW OF SYSTEMS: General, head, ears, eyes, nose, throat, cardiovascular, respiratory, GI, , musculoskeletal, neurologic, and skin is negative except as mentioned in the HPI. PHYSICAL EXAMINATION: VITAL SIGNS: Afebrile. Pulse 87, blood pressure 141/58, respirations 22 and saturation 94% on room air. GENERAL: The patient is awake and alert, in no apparent distress. LUNGS: Decent air entry. There is no prolonged expiratory phase. I do not appreciate any wheezing or rhonchi. There is minimal dependent crackles present. HEART: Normal rate, regular. ABDOMEN: Soft, nontender and nondistended. Bowel sounds are positive. MUSCULOSKELETAL: No cyanosis or clubbing. There is 1 to 2+ pitting in the bilateral lower extremities. NEUROLOGIC: Nonfocal. LABORATORY DATA: WBC 5.7, hemoglobin 11.2, and platelets 155,000. PH 7.34, pCO2 of 66, pO2 of 21 on a VBG. Creatinine 1.57, which is gently up trending. Basic metabolic profile is otherwise unremarkable. Cardiac enzymes are negative x2. Magnesium and phosphorous fall within normal limits. TSH is normal. Liver function studies were previously unremarkable. BNP 800, which is in historic high. IMAGING DATA: Chest x-ray demonstrates no acute cardiopulmonary abnormality. No obvious infiltrate or effusions are noted. ASSESSMENT: 1. Complete heart block. 2. Acute hypoxic respiratory failure secondary to remote PE, resolved. 3. History of pulmonary embolism, status post 7 months of anticoagulation. 4. Pulmonary hypertension, multifactorial. 5. Obstructive sleep apnea, severe. She nots a negative PSG several decades ago , but a recent overnight oximeter was significant for severe, episodic desaturations with a high ALEJANDRA. DISCUSSION AND PLAN: We will continue our anticoagulation through time. Pulmonary/Critical Care will continue to follow along in this location. When she is discharged from the hospital, I will have her return to clinic to see me with clinic pulmonary function studies and polysomnogram. Of note, she had a nocturnal oximetry study performed with an ALEJANDRA of 40 suggesting that she likely has quite severe sleep apnea. Her saturations are frequently dropping into 60s and 70 without oxygen. The pulmonary hypertension will need to be re-evaluated in the outpatient setting. 70 minutes have been devoted to this patient in various activities. I personally reviewed all imaging studies and laboratory data noted within this document. For fifty percent of this time, I was interacting with the patient at the bedside or coordinating care with the care team. For the remainder of the time I was immediately available to the patient in the hospital unit. Job ID: [id number] [facility]
--- NOTE | 2018-11-05 23:56 | CON ---
DATE OF CONSULTATION: 11/05/2018 HISTORY OF PRESENT ILLNESS: Ms. Sanon is an 83-year-old female. She presented with bradycardia. She said she did not realize what was going on and said she was feeling different, a little bit lightheaded and a little weak. She was seen by her material lister, noted she was bradycardic, and subsequently was admitted. She is awaiting possible permanent pacemaker implantation. PAST MEDICAL HISTORY: Remarkable for, 1. Rheumatoid arthritis. 2. Chronic kidney disease. 3. History of pulmonary embolus, on anticoagulation. 4. History of hypertension. 5. History of hypothyroidism. 6. History of lipid disorder. 7. History of asthma. 8. History of postherpetic neuralgia. 9. Status post hysterectomy. 10. Status post cholecystectomy. SOCIAL HISTORY: She is a nonsmoker, nondrinker, nondrug user. ALLERGIES: SHE HAS NO DRUG ALLERGIES. FAMILY HISTORY: Negative for lung disease in her early age. REVIEW OF SYSTEMS: A 10-point review of systems otherwise negative. She is on dobutamine. PHYSICAL EXAMINATION: GENERAL: Ms. Sanon is an 83-year-old female. VITAL SIGNS: Her heart rate is in the 80s and she says she feels good now. She is afebrile. She is on 2 L cannula, oximetry is 94 to 95 range, heart rate is in the 80s, blood pressure 129/84. HEENT: Pupils are equal. Sclerae are anicteric. NECK: Supple. No lymphadenopathy. LUNGS: Clear. HEART: Regular rhythm. S1 and S2 are normal. ABDOMEN: Soft and nontender. EXTREMITIES: Without clubbing, cyanosis, or edema. LABORATORY DATA: White count 5.7, hemoglobin 11.2, platelets 155. Sodium 143, potassium 4.8, chloride 105, bicarb 30, BUN 28, creatinine 1.57, glucose 144. IMPRESSION: Symptomatic 2:1 AV block, tentatively on the schedule for pacemaker tomorrow. We will follow as long as she is in the intermediate care or ICU. This is a 50 minute consult, with greater than 50% of time spent on unit coordinating care. Job ID: [id number] MTDD
[2018-11-06 05:07] LABS: #Eosinphils 0.1 thou/uL (0.0-0.7); #Lymphocytes 1.4 thou/uL (1.20-3.40); #Monocytes 0.5 thou/uL (0.11-0.59); #Neutrophils 2.1 thou/uL (1.40-6.50); %Basophils 0.8 % (0.0-1.0); %Eosinophils 3.4 % (0.0-10.0); %Lymphocytes 32.4 % (21.0-51.0); %Monocytes 12.9 % (0.0-10.0); %Neutrophils 50.6 % (42.0-75.0); Hemoglobin 10.6 g/dL (12.0-16.0); Mean Corpuscular HGB CONC 31.3 g/dL (32.0-36.0); Mean Corpuscular Volume 92.8 fL (78.0-98.0); Mean Platelet Volume 6.8 fL (7.4-10.4); Platelet Count 154 thou/uL (130-400); RBC Distribution Width 13.7 % (11.5-14.5); Red Blood Cell (RBC) Count 3.65 mill/uL (4.20-5.40); White Blood Cell (WBC) Count 4.2 thou/uL (4.8-10.8)
[2018-11-06 05:28] LABS: Anion Gap 11 mmol/L (10-20); BUN (Urea Nitrogen) 25 mg/dL (9.8-20.1); Calc. Creatinine Clearance 48 mL/min (70-130); Calcium 8.9 mg/dL (7.8-10.44); Carbon Dioxide 30 mmol/L (23-31); Chloride 104 mmol/L (98-107); Estimated GFR-MDRD 38; Glucose 112 mg/dL (83-110); Magnesium 1.5 mg/dL (1.6-2.6); Potassium 3.5 mmol/L (3.5-5.1); Sodium 141 mmol/L (136-145)
[2018-11-06] MEDS: Levothyroxine Sodium 25 MCG TAB PO SCH ×2 (05:43→09:16)
[2018-11-06] MEDS: Levothyroxine Sodium 112 MCG TAB PO SCH ×2 (05:43→09:16)
--- NOTE | 2018-11-06 07:47 | PRG ---
DATE OF SERVICE: 11/05/2018 SUBJECTIVE: Ms. Sanon is currently doing well. She is currently on dopamine at low dose. Heart rate is stable in the 80s. Blood pressure also appears stable. OBJECTIVE: GENERAL: Patient is a pleasant female, who is in no acute distress. The patient appears their stated age. VITAL SIGNS: Blood pressure 155/66, pulse 85, temperature afebrile. NEUROLOGIC: The patient is alert and oriented x3 with no focal neurologic deficits. HEENT: Sclerae without icterus. Mouth has moist mucous membranes with normal pallor. NECK: No JVD. Carotid upstroke brisk. No bruits bilaterally. LUNGS: Clear to auscultation with unlabored respirations. BACK: No scoliosis or kyphosis. CARDIAC: Regular rate and rhythm with normal S1 and S2. No S3 or S4 noted. No significant rubs, murmurs, thrills, or gallops noted throughout the precordium. PMI is not displaced. There is no parasternal heave. ABDOMEN: Soft, nontender, nondistended. No peritoneal signs present. No hepatosplenomegaly. No abnormal striae. EXTREMITIES: 2+ femoral and 2+ dorsalis pedis pulses. No cyanosis, clubbing, or edema. SKIN: No gross abnormalities. PERTINENT LABORATORY DATA: Hemoglobin 11.2, creatinine 1.5. IMPRESSION: 1. Symptomatic 2:1 block. 2. Previous history of pulmonary embolism. RECOMMENDATIONS: Ms. Sanon is currently doing well. Continue low-dose dopamine. She has been off Eliquis now for one day. We will keep her off again today and plan on pacemaker implantation in a.m. This to be performed by Dr. John Paul Cruz and we will also review echo. Job ID: [id number]
[2018-11-06] MEDS ORDERED: Magnesium 2 GM/50 ML 2 GM in Premix Bag 1 BAG IVPB SCH (08:30)
[2018-11-06] MEDS: Sodium Chloride 0.9% 1,000 ML IV SCH ×2 (09:01→16:28)
[2018-11-06] MEDS: Valsartan 80 MG TAB PO SCH ×2 (09:01→20:05)
[2018-11-06] MEDS: Pramipexole Di-HCl 0.125 MG TAB PO SCH (09:15)
--- NOTE | 2018-11-06 10:02 | PRG ---
DATE OF SERVICE: 11/06/2018 SUBJECTIVE: Mallika Sanon is on a schedule for pacemaker 2 o'clock today. Her heart rate is in the 80s. She still has dobutamine hanging. OBJECTIVE: VITAL SIGNS: She is afebrile. Blood pressure 169/60, oximetry is 93% on room air, and respiratory rate 18. GENERAL: She is lying flat in bed, in no distress. LUNGS: Clear. HEART: Regular rhythm. ABDOMEN: Soft. EXTREMITIES: Without edema. LABORATORY DATA: White count 4.2, hemoglobin 10.6, platelets 154. Sodium 141, potassium 3.5, chloride 104, bicarb 30, BUN 25, and creatinine 1.33. IMPRESSION: 1. Symptomatic 2:1 atrioventricular block. 2. History of pulmonary embolism. 3. Acute on chronic renal dysfunction. 4. Deconditioning. PLAN: Overall, she is stable. Hopefully, she will have a pacemaker today and then tomorrow be a candidate for discharge. Job ID: [id number]
[2018-11-06] MEDS ORDERED: Lidocaine 1% (PF) 30 ML VIAL ONE ×2 (11:53→13:42)
[2018-11-06] MEDS ORDERED: CEFAZOLIN 1 GM VIAL ONE (11:53)
[2018-11-06] MEDS ORDERED: Gentamicin 80 MG/2 ML VIAL ONE (13:47)
[2018-11-06] MEDS ORDERED: Midazolam HCl 2 mg/2 ml Vial ONE (14:36)
[2018-11-06] MEDS ORDERED: Fentanyl 100 MCG/2 ML VIAL ONE (14:37)
[2018-11-06] MEDS: Acetaminophen 325 MG TAB PO PRN (16:25)
--- NOTE | 2018-11-06 16:30 | RAD ---
XR Chest 1 View Portable HISTORY: Pacemaker placement COMPARISON: 11/04/2018 exam FINDINGS: Heart size appears slightly enlarged. A pacemaker is been placed. There are no signs of pne umothorax. IMPRESSION: No evidence of pneumothorax post pacemaker placement.
[2018-11-06] MEDS ORDERED: traMADol HCl 50 MG TAB PO PRN (17:24)
[2018-11-06] MEDS ORDERED: hydrALAZINE 20 MG/ML VIAL SLOW IVP PRN (18:37)
[2018-11-06] MEDS ORDERED: Carvedilol 3.125 MG TAB PO SCH (19:00)
[2018-11-06] MEDS: Cephalexin 250 MG CAP PO SCH (20:04)
--- NOTE | 2018-11-06 21:05 | PRG ---
DATE OF SERVICE: 11/06/2018 HISTORY OF PRESENT ILLNESS: An 83-year-old female with hypertension, hyperlipidemia, and pulmonary embolism in 2018, currently on anticoagulation with Eliquis; presented from Dr. Garsia's office due to significant bradycardia with heart rate in 20s to 30s. She was monitored in the intensive care unit. She was placed on dobutamine and dopamine drip. She underwent pacemaker placement this morning. Symptomatically, she feels much better. She denies any chest pain, shortness of breath, or palpitations. REVIEW OF SYSTEMS: The patient denies any new complaints. No fever, chills, chest pain, or nausea reported. PHYSICAL EXAMINATION: VITAL SIGNS: Temperature, the patient is afebrile. Blood pressure is 184/87, pulse rate of 79, respirations of 24, and O2 saturation 94% on room air. GENERAL: An 83-year-old female in no apparent distress. Mild discomfort over the pacemaker site. LUNGS: Clear to auscultation bilaterally. HEART: S1, S2 present. Regular. ABDOMEN: Soft. Bowel sounds are present. EXTREMITIES: No edema or calf tenderness. NEUROLOGIC: Grossly nonfocal. LABORATORY FINDINGS: WBC 4.2, hemoglobin 10.6, hematocrit 33.9, and platelet count of 154. Creatinine 1.33 with BUN 25, with potassium 3.5. Echocardiogram showed left ventricular ejection fraction of 55-60% with moderate tricuspid regurgitation. IMPRESSION: 1. Symptomatic high-degree atrioventricular block causing near syncope. The patient underwent pacemaker placement today. 2. History of pulmonary embolism. Eliquis is currently on hold. 3. Hypertension, uncontrolled. 4. Chronic kidney disease stage 3. 5. Rheumatoid arthritis. 6. Hypothyroidism. 7. Mild intermittent asthma. 8. Postherpetic neuralgia. 9. Chronic low back pain. 10. Obesity with a body mass index of 39. 11. Current medications were reviewed. 12. Hypomagnesemia with magnesium of 1.5. PLAN: We will continue valsartan at 160 mg b.i.d. I discussed with Cardiology who recommended to start carvedilol at 3.125 b.i.d. Magnesium was replaced. We will recheck labs in a.m. Cardiac rehabilitation. Continue home dose of levothyroxine. Disposition home in a.m. if okay with Cardiology. We will resume anticoagulation when okay with Cardiology. Job ID: [id number]
[2018-11-07 05:08] LABS: Anion Gap 10 mmol/L (10-20); BUN (Urea Nitrogen) 22 mg/dL (9.8-20.1); Calc. Creatinine Clearance 47 mL/min (70-130); Calcium 8.9 mg/dL (7.8-10.44); Carbon Dioxide 31 mmol/L (23-31); Chloride 104 mmol/L (98-107); Estimated GFR-MDRD 38; Glucose 106 mg/dL (83-110); Magnesium 1.8 mg/dL (1.6-2.6); Potassium 3.9 mmol/L (3.5-5.1); Sodium 141 mmol/L (136-145)
[2018-11-07] MEDS: Levothyroxine Sodium 25 MCG TAB PO SCH (06:06)
[2018-11-07] MEDS: Levothyroxine Sodium 112 MCG TAB PO SCH (06:06)
[2018-11-07] MEDS ORDERED: Carvedilol 3.125 MG TAB PO SCH (08:00)
--- NOTE | 2018-11-07 08:22 | PDOC.CTH ---
Cardiology Progress Note - Subjective Doing well. No currnt complaints. - Objective Vital Signs Temp Pulse Ox 11/07/18 08:01 97 11/07/18 07:31 98.2 F 11/07/18 04:00 98.0 F 11/06/18 23:53 98.6 F Weight 214 lb 8 oz 11/06/18 11/07/18 11/08/18 06:59 06:59 06:59 Intake Total 762.9 881.9 Output Total 151 450 Balance 611.9 431.9 - Physical Examination General/Neuro: alert & oriented x3, NAD Neck: carotid US brisk, no JVD present Lungs: unlabored respirations Heart: PMI normal, RRR Abdomen: NT/ND, soft Extremities: + femoral B - Telemetry Telemetry Rhythm: paced - Labs Result Diagrams: 11/06/18 04:48 11/07/18 04:24 Troponin/CKMB Troponin I Less than 0.010 ng/mL (< 0.028) 11/04/18 18:42 - Assessment/Plan 2:1 block h/p PE HTN Doing well CXR stable resume ACT home with op fu Switch from eliquis to xsarelto given marginal RF Discussed with pt. Script has been sent to [facility]. Once she recieves new script, she will stiop eloy Restart ACT on Friday per Dr. Cruz
[2018-11-07] MEDS: Valsartan 80 MG TAB PO SCH (08:44)
[2018-11-07] MEDS: Cephalexin 250 MG CAP PO SCH (08:44)
[2018-11-07] MEDS: Pramipexole Di-HCl 0.125 MG TAB PO SCH (08:44)
[2018-11-07 11:08] VITALS: TEMP 98.6
[2018-11-07 11:55] VITALS: BP 153/77
--- NOTE | 2018-11-07 12:54 | EKG ---
Test Reason : SENT BY CARDS Blood Pressure : / mmHG Vent. Rate : 036 BPM Atrial Rate : 072 BPM P-R Int : 212 ms QRS Dur : 082 ms QT Int : 536 ms P-R-T Axes : 071 040 076 degrees QTc Int : 414 ms Sinus rhythm with 2nd degree A-V block with 2:1 A-V conduction vs 3rd degree AV block Abnormal ECG Confirmed by GABBY RODRÍGUEZ MD ([id number]), production editor MARIE MALLORY ([id number]) on 11/07/2018 12:54:48 PM Referred By: Confirmed By:GABBY RODRÍGUEZ MD
--- NOTE | 2018-11-07 15:53 | CCL ---
PERMANENT PACEMAKER INSERTION: INDICATION: 2:1 AV block, exertional dyspnea, fatigue. DESCRIPTION OF PROCEDURE: The patient was brought to the Cardiac Chipper Operator and the left subclavian area was prepped and draped in the usual manner. 1% Lidocaine was infiltrated. A left axillary venogram was performed for location of the subclavian vein. This was then entered and a J-wire was placed into the superior vena cava. Pacemaker pocket was manufactured using blunt and sharp dissection with electrocautery for hemostasis. An antibiotic solution soaked gauze was placed in the subcutaneous pocket. A second J-wire was placed into the left subclavian vein. Using 7-Occitan peel away sheath, the atrial and ventricular leads were inserted. The ventricular lead was inserted into the right ventricular apex and screwed into place. The right atrial lead was screwed into the right atrium. The sheaths were removed. Right ventricular lead - R-wave 6.9, impedance 708, threshold 0.4 volts. Right atrial lead, the P-wave was 4,7, impedance 509, threshold 0.2 volts. The tabs on the suture tie-downs were removed and both leads were secured in place with two sutures of 0 silk. The antibiotic solution soaked gauze was removed from the pocket and this was irrigated with copious amounts of antibiotic solution. There continued to be significant oozing (just passed 48 hours since last dose of Eliquis). D-stat flowable was placed into the pocket. The leads were attached to the pacemaker generator and this was placed into the pocket and secured in place with one suture of 0 silk. Two layers of running 3-0 Vicryl, one layer of running 4-0 Vicryl were placed. The incision was closed with Dermabond. The patient tolerated the procedure well. [facility]ITAL[facility]
--- NOTE | 2018-11-07 21:29 | DIS ---
DATE OF ADMISSION: 11/04/2018 DATE OF DISCHARGE: 11/07/2018 CONSULTANTS: 1. Dr. Garsia and Dr. Cruz of Cardiology. 2. Dr. Jacome of Pulmonology. PROCEDURES PERFORMED: Pacemaker insertion on 11/06, with a MRI compatible DDD-R pacemaker. MEDICATIONS: Reconciled at discharge. 1. Discontinued medication is metoprolol succinate. New medications: 1. Coreg 3.125 mg b.i.d. with meals. 2. Keflex 250 mg p.o. t.i.d. for 9 days. 3. Tylenol No.3 one tablet every 6 hours as needed for pain. Prescription provided for 15 tablets. No refills. Medications to resume: 1. Tylenol suppository 650 mg MN q.4 hours p.r.n., however, I suspect it is the oral form to take that every 4 hours as needed, however, not in conjunction with the Tylenol No.3. 2. Eliquis 5 mg b.i.d. - to restart this on Friday - 2 days from now - due to pacemaker placement on November 06. 3. Dulcolax daily as needed. 4. Famotidine 20 mg daily. 5. Arnuity Ellipta 50 mcg nasal daily. 6. Arnuity Ellipta 50 mcg inhaled b.i.d. 7. Furosemide 40 mg daily. 8. DuoNeb every 6 hours as needed. 9. Integra multivitamin daily. 10. Levothyroxine 137 mcg daily. 11. Pramipexole 0.125 mg daily. 12. Valsartan 160 mg daily. 13. Sulfasalazine 500 mg daily. Of note, Dr. Garsia is changing the patient from Eliquis to Xarelto and he is going to order by mail. The patient has instructions to resume the Eliquis on Friday, and to exchange underwriting consultant to the Xarelto when it arrives at her home. FINAL DIAGNOSES: 1. High-degree AV block with near syncope, now status post pacemaker insertion. 2. Hypertension. 3. Chronic kidney disease, stage 3. SECONDARY DIAGNOSES: 1. History of pulmonary embolism, on full anticoagulation. 2. Rheumatoid arthritis. 3. Hypothyroidism. 4. Mild intermittent asthma. 5. Postherpetic neuralgia with chronic low back pain. 6. Obesity. 7. Leukopenia and anemia, both mild. HISTORY OF PRESENT ILLNESS: Ms. Sanon is an 83-year-old female with the above medical problems, who presented to the emergency room from her cardiology office due to concern of high degree AV block and near syncopal symptoms. Please see H and P for full details. HOSPITAL COURSE: The patient was admitted, started on dobutamine and monitored on telemetry. Because she is on Eliquis, her pacemaker implantation was held until yesterday, 11/06. She tolerated this well. Her medications have been adjusted and she was started on carvedilol, stopped from her home metoprolol and she has been followed by Dr. Garsia, her outpatient resaw operator. The patient is overall feeling well and has been cleared for discharge to home by Cardiology. The patient is on Eliquis with a fluctuating creatinine. Due to this, Dr. Garsia is going to change her to Xarelto and is ordering this by her home [facility] scripts. The patient has instructions to start her Eliquis on Friday, and exchange underwriting consultant to Xarelto when she receives the medication. She will be on Keflex for the pacemaker insertion for an additional 9 days. The patient is overall feeling well, ambulating without difficulty. No further syncopal or presyncopal symptoms, and meets criteria for discharge. PHYSICAL EXAMINATION: VITAL SIGNS: Blood pressure 145/71, pulse is 71, respirations 25, saturation is 94% on room air. GENERAL: Awake, alert, responsive, in no apparent distress. Able to speak in full sentences. LUNGS: Clear to auscultation bilateral. HEART: Normal S1 and S2. Regular rate and rhythm. No significant murmurs. ABDOMEN: Soft with present bowel sounds. EXTREMITIES: Trace pitting edema bilateral. JESUS FINDINGS AND TEST RESULTS: CBC; 4.2, 10.6, 33.9, 154. Renal panel; 141, 3.9, 104, 31, 22, 1.33, 106. Mag 1.8. TSH 0.9055, free T4 is 1.04. Troponin x3 negative. BNP 834. Echocardiogram shows an EF of 55% to 60%, moderately to severely dilated left atrium, moderate TR, and severely elevated pulmonary artery pressure. Chest x-ray on 11/04, no acute cardiopulmonary findings. DIET: Heart healthy. ACTIVITY: The patient given limitations because of the pacemaker to limit raising up her left arm for a few weeks. She is aware of these instructions and to follow up with Dr. Cruz if there are any concerns. CODE STATUS: Full. DISCHARGE DISPOSITION: Home. Reviewed with the patient and her [id number] this hospitalization, the importance of followup, the changes in her medications, and return for care precautions. They demonstrate understanding. TIME SPENT: Total time coordinating discharge is 35 minutes. Job ID: [id number] MTDD
== END 2018-11-07 13:27 | disposition home or self-care (01) | DRG 243 ==
LOC: ERS 11:52 → CCU 18:32 → IMCU/EMU 11-05 10:58
PROVIDERS: ADMIT Family Medicine; ATTEND Family Medicine
PROC: 4A023N7 Measurement of Cardiac Sampling and Pressure, Left Heart, Percutaneous Approach (ICD-10-PCS; principal; 2018-11-06)
PROC: B2151ZZ Fluoroscopy of Left Heart using Low Osmolar Contrast (ICD-10-PCS; 2018-11-06)
PROC: B2111ZZ Fluoroscopy of Multiple Coronary Arteries using Low Osmolar Contrast (ICD-10-PCS; 2018-11-06)
PROC: 0JH606Z Insertion of Pacemaker, Dual Chamber into Chest Subcutaneous Tissue and Fascia, Open Approach (ICD-10-PCS; 2018-11-07)
PROC: 02HK3JZ Insertion of Pacemaker Lead into Right Ventricle, Percutaneous Approach (ICD-10-PCS; 2018-11-07)
PROC: 02H63JZ Insertion of Pacemaker Lead into Right Atrium, Percutaneous Approach (ICD-10-PCS; 2018-11-07)
DX: I44.2 Atrioventricular block, complete (principal); B02.29 Other postherpetic nervous system involvement; J96.11 Chronic respiratory failure with hypoxia; E03.9 Hypothyroidism, unspecified; M06.9 Rheumatoid arthritis, unspecified; N18.3 Chronic kidney disease, stage 3 (moderate); I12.9 Hypertensive chronic kidney disease with stage 1 through stage 4 chronic kidney disease, or unspecified chronic kidney disease; M79.7 Fibromyalgia; E78.00 Pure hypercholesterolemia, unspecified; E55.9 Vitamin D deficiency, unspecified; G47.33 Obstructive sleep apnea (adult) (pediatric); J45.20 Mild intermittent asthma, uncomplicated; E66.9 Obesity, unspecified; D72.819 Decreased white blood cell count, unspecified; E83.42 Hypomagnesemia; Z68.39 Body mass index [BMI] 39.0-39.9, adult; Z99.81 Dependence on supplemental oxygen; Z86.711 Personal history of pulmonary embolism; Z79.01 Long term (current) use of anticoagulants; Z79.899 Other long term (current) drug therapy; Z79.51 Long term (current) use of inhaled steroids; Z90.710 Acquired absence of both cervix and uterus; Z87.891 Personal history of nicotine dependence; Z90.49 Acquired absence of other specified parts of digestive tract; N28.9 Disorder of kidney and ureter, unspecified
CPT/HCPCS: 33208; 36415; 71045; 75820; 80048; 80053; 82330; 82803; 83735; 83880; 84100; 84439; 84443; 84484; 85025; 86850; 86900; 86901; 93005; 93306; 93798; 99152; C1785; C1898; J0690; J1250; J1265; J1580; J1940; J2001; J2250; J3010; J3475; J3490

== ENCOUNTER 2018-12-24 11:54 | Outpatient (CLI) | payer MEDICARE, OTHER ==
[2018-12-24 12:44] LABS: Actual Bicarbonate (HCO3a) 30.9 mEq/L (22-28); Analyzer IN Cardio OR; Base Excess (BEa) 5.6 mEq/L (-2.0 to +3.0); CO2 Tension 47.7 mmHg (35.0-45.0); Calcium, Ionized 1.25 mmol/L (1.12-1.30); Hemoglobin (Hb) 13.7 g/dL (12.0-16.0); O2 Tension (PaO2) 77.7 mmHg (> 60.0); Potassium - ABG Lab 3.95 mmol/L (3.70-5.30); pH, Arterial 7.43 (7.35-7.45)
[2018-12-24 12:46] LABS: ALV-art Gradient 12.405 (0-20); Puncture Site RR
== END 2018-12-24 11:55 | disposition home or self-care (01) ==
LOC: CP 11:54
PROVIDERS: ATTEND Internal Medicine
DX: R06.09 Other forms of dyspnea (principal)
CPT/HCPCS: 82805; 94060; 94727; 94729

== ENCOUNTER 2019-01-27 19:30 | Outpatient (CLI) | payer MEDICARE, OTHER | END 2019-01-27 19:31 | disposition home or self-care (01) | LOC: SLEEPLAB 19:30 | PROVIDERS: ATTEND Internal Medicine | DX: G47.33 Obstructive sleep apnea (adult) (pediatric) (principal); R53.83 Other fatigue; R09.89 Other specified symptoms and signs involving the circulatory and respiratory systems; R51 Headache; R35.1 Nocturia; R06.83 Snoring; G47.00 Insomnia, unspecified; G47.10 Hypersomnia, unspecified; I10 Essential (primary) hypertension; E66.9 Obesity, unspecified; Z68.38 Body mass index [BMI] 38.0-38.9, adult | CPT/HCPCS: 95811 ==

== ENCOUNTER 2019-03-31 20:30 | Outpatient (CLI) | payer MEDICARE, OTHER | END 2019-03-31 20:31 | disposition home or self-care (01) | LOC: SLEEPLAB 20:30 | PROVIDERS: ATTEND Internal Medicine | DX: G47.33 Obstructive sleep apnea (adult) (pediatric) (principal); R51 Headache; E66.9 Obesity, unspecified; R06.83 Snoring; R35.1 Nocturia; R53.83 Other fatigue | CPT/HCPCS: 95811 ==

== ENCOUNTER 2019-09-24 13:34 | Emergency (ER) | payer MEDICARE, OTHER ==
[2019-09-24 14:41] LABS: #Basophils 0.1 thou/uL (0.0-0.2); #Eosinphils 0.3 thou/uL (0.0-0.7); #Lymphocytes 2.2 thou/uL (1.20-3.40); #Monocytes 0.8 thou/uL (0.11-0.59); #Neutrophils 3.3 thou/uL (1.40-6.50); %Basophils 1.1 % (0.0-1.0); %Lymphocytes 32.8 % (21.0-51.0); %Monocytes 12.2 % (0.0-10.0); %Neutrophils 49.9 % (42.0-75.0); Hemoglobin 11.9 g/dL (12.0-16.0); Mean Corpuscular HGB CONC 31.8 g/dL (32.0-36.0); Mean Corpuscular Hemoglobin 29.3 pg (27.0-31.0); Mean Corpuscular Volume 92.1 fL (78.0-98.0); Mean Platelet Volume 6.3 fL (7.4-10.4); Platelet Count 228 thou/uL (130-400); RBC Distribution Width 12.5 % (11.5-14.5); Red Blood Cell (RBC) Count 4.05 mill/uL (4.20-5.40); White Blood Cell (WBC) Count 6.7 thou/uL (4.8-10.8)
[2019-09-24 15:01] LABS: ALT (SGPT) 14 U/L (8-55); AST (SGOT) 25 U/L (5-34); Albumin 3.7 g/dL (3.4-4.8); Alkaline Phosphatase 58 U/L (40-110); Anion Gap 15 mmol/L (10-20); BUN (Urea Nitrogen) 21 mg/dL (9.8-20.1); Bilirubin, Total 0.5 mg/dL (0.2-1.2); Calc. Creatinine Clearance 0 mL/min (70-130); Calcium 9.8 mg/dL (7.8-10.44); Carbon Dioxide 26 mmol/L (23-31); Chloride 102 mmol/L (98-107); Estimated GFR-MDRD 34; Globulin 3.7 g/dL (2.4-3.5); Glucose 105 mg/dL (83-110); Potassium 3.6 mmol/L (3.5-5.1); Protein, Total 7.4 g/dL (6.0-8.3); Sodium 139 mmol/L (136-145)
[2019-09-24 16:50] LABS: INR-International Normal Ratio 2.3; Prothrombin Time 24.9 sec (12.0-14.7)
[2019-09-24] MEDS ORDERED: Pantoprazole 40 MG VIAL ONE (16:59)
== END 2019-09-24 18:15 | disposition home or self-care (01) ==
LOC: ERS 13:34
DX: K92.1 Melena (principal); E03.9 Hypothyroidism, unspecified; E78.5 Hyperlipidemia, unspecified; E78.00 Pure hypercholesterolemia, unspecified; I10 Essential (primary) hypertension; M06.9 Rheumatoid arthritis, unspecified; J45.909 Unspecified asthma, uncomplicated; Z87.891 Personal history of nicotine dependence; Z79.01 Long term (current) use of anticoagulants; Z79.899 Other long term (current) drug therapy
CPT/HCPCS: 36415; 80053; 82274; 83605; 85025; 85610; 85730; 86850; 86900; 86901; 96374; C9113

== ENCOUNTER 2020-03-14 07:12 | Outpatient (CLI) | payer MEDICARE, OTHER ==
[2020-03-15 05:47] LABS: SARS-CoV-2 MS2 Positive; SARS-CoV-2 N Gene Negative; SARS-CoV-2 S Gene Negative; SARS-CoV-2 by NAA Not Detected (NotDetected); SARS-CoV-2 orf1ab Negative
== END 2020-03-14 07:13 | disposition home or self-care (01) ==
LOC: LABBT 07:12
PROVIDERS: ATTEND Internal Medicine Gastroenterology
DX: Z01.812 Encounter for preprocedural laboratory examination (principal); K92.1 Melena; D64.9 Anemia, unspecified; Z20.828 Contact with and (suspected) exposure to other viral communicable diseases
CPT/HCPCS: 87635; U0003

== ENCOUNTER 2020-03-17 05:51 | Day surgery (SDC) | payer MEDICARE, OTHER ==
[2020-03-16 09:02] VITALS: BMI 38.4
--- NOTE | 2020-03-17 09:55 | OP ---
DATE OF PROCEDURE: 03/17/2020 PROCEDURES PERFORMED: Esophagogastroduodenoscopy with biopsy and colonoscopy with biopsy and snare polypectomy. PREOPERATIVE DIAGNOSES: Hematochezia and intermittent diarrhea. DESCRIPTION OF PROCEDURE: Informed consent was obtained from the patient. She was sedated with total intravenous anesthesia. The bite block was placed and the endoscope was advanced easily to the second portion of the duodenum and retroflexion was performed in the stomach. Esophagus was normal. The GE junction was normal. The stomach had erosive gastritis in the body of the stomach with scattered heme staining. Biopsies were taken from the antrum and body to rule out Helicobacter pylori. There was mild erythematous duodenitis in the first portion of the duodenum and the second portion of the duodenum was normal. Biopsies were taken from the second portion of the duodenum to rule out celiac disease. The patient was turned around, rectal exam was performed and revealed some excoriation and skin breakdown around the gluteal cleft. The colonoscope was advanced to the cecum, where the ileocecal valve and appendiceal orifice were clearly identified. There was moderate to severe diverticulosis in the sigmoid colon. The preparation quality was good. I removed a 6 mm polyp from the ascending colon by cold snare polypectomy. The remainder of the colonic mucosa was unremarkable. Random biopsies were taken from the ascending colon and sigmoid colon to rule out microscopic colitis. Retroflexed views in the rectum revealed moderate internal hemorrhoids. IMPRESSION: 1. Erosive gastritis and erythematous duodenitis. Biopsies taken to rule out Helicobacter pylori. 2. Otherwise normal EGD. Duodenal biopsies taken to rule out celiac disease. 3. Moderate to severe sigmoid diverticulosis. 4. 6 mm ascending colon polyp removed by cold snare. 5. Moderate internal hemorrhoids which are the likely bleeding source. 6. Otherwise normal colonoscopy. Random biopsies were taken from the right and left colon to rule out microscopic colitis. RECOMMENDATIONS: 1. Await histopathology. 2. Start omeprazole 20 mg daily. 3. Follow up in GI clinic in 1 month. 4. Start Metamucil 1 tablespoon daily. 5. Apply barrier cream to the perianal skin. Job ID: [id number]
[2020-03-17] MEDS ORDERED: Lidocaine 1% PF 5 ML VIAL ONE (12:10)
[2020-03-17] MEDS ORDERED: PROPOFOL 200 MG/20 ML VIAL ONE (12:10)
[2020-03-17] MEDS ORDERED: ePHEDrine 50 MG/ML VIAL ONE (12:10)
[2020-03-17] MEDS ORDERED: PHENYLEPHRINE-NS 100 MCG/ML 10 ML SYRINGE ONE (12:10)
== END 2020-03-17 10:02 | disposition home or self-care (01) ==
LOC: SDC 05:51
PROVIDERS: ATTEND Internal Medicine Gastroenterology
PROC: 0DBK8ZZ Excision of Ascending Colon, Via Natural or Artificial Opening Endoscopic (ICD-10-PCS; principal; 2020-03-17)
PROC: 0DB98ZX Excision of Duodenum, Via Natural or Artificial Opening Endoscopic, Diagnostic (ICD-10-PCS; 2020-03-17)
PROC: 0DB68ZX Excision of Stomach, Via Natural or Artificial Opening Endoscopic, Diagnostic (ICD-10-PCS; 2020-03-17)
DX: K63.5 Polyp of colon (principal); K57.30 Diverticulosis of large intestine without perforation or abscess without bleeding; K64.8 Other hemorrhoids; K29.50 Unspecified chronic gastritis without bleeding; K29.80 Duodenitis without bleeding; D64.9 Anemia, unspecified; Z79.01 Long term (current) use of anticoagulants; Z79.899 Other long term (current) drug therapy; Z88.2 Allergy status to sulfonamides; M19.90 Unspecified osteoarthritis, unspecified site; I48.91 Unspecified atrial fibrillation; Z95.0 Presence of cardiac pacemaker; Z87.891 Personal history of nicotine dependence
CPT/HCPCS: 88305; 88312; J2704; J3490

== ENCOUNTER 2020-05-23 17:13 | Inpatient (IN) | payer MEDICARE, OTHER ==
[2020-05-23 17:42] LABS: #Basophils 0.1 thou/uL (0.0-0.2); #Eosinphils 0.3 thou/uL (0.0-0.7); #Lymphocytes 2.6 thou/uL (1.20-3.40); #Monocytes 0.7 thou/uL (0.11-0.59); #Neutrophils 3.5 thou/uL (1.40-6.50); %Basophils 1.3 % (0.0-1.0); %Eosinophils 4.6 % (0.0-10.0); %Lymphocytes 35.6 % (21.0-51.0); %Neutrophils 48.5 % (42.0-75.0); Hemoglobin 14.4 g/dL (12.0-16.0); Mean Corpuscular HGB CONC 32.2 g/dL (32.0-36.0); Mean Corpuscular Volume 90.2 fL (78.0-98.0); Mean Platelet Volume 7.1 fL (7.4-10.4); Platelet Count 189 thou/uL (130-400); RBC Distribution Width 12.9 % (11.5-14.5); Red Blood Cell (RBC) Count 4.95 mill/uL (4.20-5.40); White Blood Cell (WBC) Count 7.2 thou/uL (4.8-10.8)
[2020-05-23 17:49] LABS: INR-International Normal Ratio 2.1; Prothrombin Time 23.7 sec (12.0-14.7)
[2020-05-23 18:44] LABS: ALT (SGPT) 12 U/L (8-55); AST (SGOT) 22 U/L (5-34); Alkaline Phosphatase 65 U/L (40-110); Anion Gap 17 mmol/L (10-20); BUN (Urea Nitrogen) 29 mg/dL (9.8-20.1); Bilirubin, Total 0.3 mg/dL (0.2-1.2); CK (CPK) 55 U/L (29-168); Calc. Creatinine Clearance 0 mL/min (70-130); Carbon Dioxide 28 mmol/L (23-31); Chloride 100 mmol/L (98-107); Globulin 3.9 g/dL (2.4-3.5); Glucose 96 mg/dL (83-110); Potassium 4.3 mmol/L (3.5-5.1); Protein, Total 7.9 g/dL (5.8-8.1); Sodium 141 mmol/L (136-145)
[2020-05-23] MEDS ORDERED: Insulin Regular 300 UNITS/3 ML VIAL SC PRN (21:33)
[2020-05-23] MEDS ORDERED: hydrALAZINE 20 MG/ML VIAL SLOW IVP PRN (21:33)
[2020-05-23] MEDS ORDERED: Labetalol HCl 100 MG/20 ML VIAL SLOW IVP PRN (21:33)
[2020-05-23 23:07] VITALS: BMI 38.2
[2020-05-23] MEDS: Acetaminophen/Codeine 30-300mg Tablet PO PRN (23:47)
[2020-05-23] MEDS: diphenhydrAMINE 25 MG CAP PO PRN (23:47)
[2020-05-24 04:55] LABS: #Basophils 0.1 thou/uL (0.0-0.2); #Eosinphils 0.3 thou/uL (0.0-0.7); #Lymphocytes 2.4 thou/uL (1.20-3.40); #Monocytes 0.7 thou/uL (0.11-0.59); %Basophils 0.8 % (0.0-1.0); %Lymphocytes 37.4 % (21.0-51.0); %Monocytes 11.3 % (0.0-10.0); %Neutrophils 45.6 % (42.0-75.0); Mean Corpuscular HGB CONC 32.4 g/dL (32.0-36.0); Mean Corpuscular Hemoglobin 29.2 pg (27.0-31.0); Mean Corpuscular Volume 90.3 fL (78.0-98.0); Mean Platelet Volume 7.3 fL (7.4-10.4); Platelet Count 160 thou/uL (130-400); RBC Distribution Width 12.8 % (11.5-14.5); Red Blood Cell (RBC) Count 4.44 mill/uL (4.20-5.40); White Blood Cell (WBC) Count 6.5 thou/uL (4.8-10.8)
[2020-05-24 05:16] LABS: Anion Gap 14 mmol/L (10-20); BUN (Urea Nitrogen) 27 mg/dL (9.8-20.1); Calc. Creatinine Clearance 45 mL/min (70-130); Carbon Dioxide 28 mmol/L (23-31); Cardiac Risk 4.5 (Less than 4.5); Chloride 101 mmol/L (98-107); Cholesterol 224 mg/dl (< 200 Desired); Glucose 111 mg/dL (83-110); HDL Cholesterol 50 mg/dL (>60 Neg Risk); LDL Cholesterol, Calculated 145 mg/dL; Magnesium 1.9 mg/dL (1.6-2.6); Sodium 139 mmol/L (136-145); Triglycerides 144 mg/dL (Less than 150)
[2020-05-24] MEDS: Rivaroxaban 10 MG TAB PO SCH (05:55)
[2020-05-24] MEDS: Levothyroxine Sodium 100 MCG TAB PO SCH (05:55)
[2020-05-24] MEDS ORDERED: Carvedilol 3.125 MG TAB PO SCH (08:00)
[2020-05-24] MEDS: Calcium Carbonate 500 MG TAB PO SCH (08:24)
[2020-05-24] MEDS: Furosemide 40 MG TAB PO SCH (08:24)
[2020-05-24] MEDS: Aspirin 325 mg Enteric Coated Tablet PO SCH (08:24)
[2020-05-24 08:36] LABS: SARS-CoV-2 PCR by NAA Not Detected (NotDetected)
[2020-05-24] MEDS ORDERED: Non-Formulary Item 1 EACH (Valsartan [Valsartan] 160 MG Tablet) PO SCH (09:00)
[2020-05-24] MEDS ORDERED: Amlodipine 5 MG TAB PO SCH (09:00)
[2020-05-24] MEDS: Polyvinyl Alcohol 1.4%/Povidone 0.6% Opth Drops EA EYE SCH ×2 (15:31→21:34)
[2020-05-24] MEDS ORDERED: Atorvastatin Calcium 40 MG TAB PO SCH (21:00)
[2020-05-24] MEDS: Acetaminophen/Codeine 30-300mg Tablet PO PRN (21:34)
[2020-05-24] MEDS: diphenhydrAMINE 25 MG CAP PO PRN (21:34)
[2020-05-25] MEDS: Polyvinyl Alcohol 1.4%/Povidone 0.6% Opth Drops EA EYE SCH ×4 (01:00→15:47)
[2020-05-25 05:14] LABS: #Basophils 0.1 thou/uL (0.0-0.2); #Eosinphils 0.4 thou/uL (0.0-0.7); #Lymphocytes 2.3 thou/uL (1.20-3.40); #Monocytes 0.7 thou/uL (0.11-0.59); #Neutrophils 3.1 thou/uL (1.40-6.50); %Basophils 1.5 % (0.0-1.0); %Eosinophils 5.7 % (0.0-10.0); %Lymphocytes 34.6 % (21.0-51.0); %Monocytes 11.3 % (0.0-10.0); %Neutrophils 46.9 % (42.0-75.0); Hemoglobin 12.7 g/dL (12.0-16.0); Mean Corpuscular HGB CONC 31.7 g/dL (32.0-36.0); Mean Corpuscular Hemoglobin 28.5 pg (27.0-31.0); Mean Platelet Volume 9.3 fL (7.4-10.4); Platelet Count 180 thou/uL (130-400); RBC Distribution Width 12.9 % (11.5-14.5); Red Blood Cell (RBC) Count 4.47 mill/uL (4.20-5.40); White Blood Cell (WBC) Count 6.5 thou/uL (4.8-10.8)
[2020-05-25 05:35] LABS: Anion Gap 12 mmol/L (10-20); BUN (Urea Nitrogen) 27 mg/dL (9.8-20.1); Calc. Creatinine Clearance 40 mL/min (70-130); Calcium 8.3 mg/dL (7.8-10.44); Carbon Dioxide 28 mmol/L (23-31); Chloride 101 mmol/L (98-107); Glucose 110 mg/dL (83-110); Magnesium 1.8 mg/dL (1.6-2.6); Potassium 3.9 mmol/L (3.5-5.1); Sodium 137 mmol/L (136-145)
[2020-05-25] MEDS: Levothyroxine Sodium 100 MCG TAB PO SCH (05:54)
[2020-05-25] MEDS: Rivaroxaban 10 MG TAB PO SCH (05:54)
[2020-05-25] MEDS: Aspirin 325 mg Enteric Coated Tablet PO SCH (08:30)
[2020-05-25] MEDS: Calcium Carbonate 500 MG TAB PO SCH (08:30)
[2020-05-25] MEDS: Furosemide 40 MG TAB PO SCH (08:30)
[2020-05-25 12:05] VITALS: BP 133/62; TEMP 97.8
== END 2020-05-25 16:04 | disposition home or self-care (01) | DRG 123 ==
LOC: ERS 17:13 → 2SE 18:25 → OBSVTOIN 05-24 16:11
PROVIDERS: ADMIT Internal Medicine; ATTEND Internal Medicine
DX: H34.9 Unspecified retinal vascular occlusion (principal); N17.9 Acute kidney failure, unspecified; I13.0 Hypertensive heart and chronic kidney disease with heart failure and stage 1 through stage 4 chronic kidney disease, or unspecified chronic kidney disease; E03.9 Hypothyroidism, unspecified; E78.5 Hyperlipidemia, unspecified; E78.00 Pure hypercholesterolemia, unspecified; M79.7 Fibromyalgia; J45.909 Unspecified asthma, uncomplicated; G89.29 Other chronic pain; M54.9 Dorsalgia, unspecified; N28.1 Cyst of kidney, acquired; D64.9 Anemia, unspecified; N18.30 Chronic kidney disease, stage 3 unspecified; Z20.822 Contact with and (suspected) exposure to COVID-19; E66.01 Morbid (severe) obesity due to excess calories; Z66 Do not resuscitate; M06.9 Rheumatoid arthritis, unspecified; Z90.710 Acquired absence of both cervix and uterus; Z90.49 Acquired absence of other specified parts of digestive tract; Z87.891 Personal history of nicotine dependence; Z88.2 Allergy status to sulfonamides; Z79.01 Long term (current) use of anticoagulants; Z79.890 Hormone replacement therapy; Z79.899 Other long term (current) drug therapy; Z86.711 Personal history of pulmonary embolism; Z68.38 Body mass index [BMI] 38.0-38.9, adult; Z95.0 Presence of cardiac pacemaker
CPT/HCPCS: 36415; 36416; 70450; 70551; 71045; 76770; 80048; 80053; 80061; 82550; 83735; 84484; 85025; 85610; 85652; 85730; 87635; 93005; 93880; G0378; Q0163; U0003; U0005

== ENCOUNTER 2020-12-15 11:06 | Inpatient (IN) | payer MEDICARE, OTHER ==
[2020-12-15] MEDS ORDERED: Ondansetron PF 4 MG/2 ML Vial ONE (11:44)
[2020-12-15] MEDS ORDERED: Morphine 4 MG/ML VIAL ONE ×2 (11:44→15:00)
[2020-12-15 11:50] LABS: Hemoglobin 8.9 g/dL (12.0-16.0); Mean Corpuscular HGB CONC 31.9 g/dL (32.0-36.0); Mean Corpuscular Hemoglobin 27.1 pg (27.0-31.0); Mean Platelet Volume 6.7 fL (7.4-10.4); Platelet Count 265 thou/uL (130-400); RBC Distribution Width 12.9 % (11.5-14.5); Red Blood Cell (RBC) Count 3.27 mill/uL (4.20-5.40); White Blood Cell (WBC) Count 22.9 thou/uL (4.8-10.8)
[2020-12-15 12:09] LABS: Band 27 % (5-11); Lymphocytes 7 % (21-51); MDiff Complete? YES; Monocytes 13 % (0-10); Neutrophil 53 % (42-75); Platelet Morphology Comment Appears Adequate; Polychromasia SLIGHT = 2-3 cells (100X) (0-2/hpf)
[2020-12-15 12:10] LABS: ALT (SGPT) 22 U/L (8-55); AST (SGOT) 31 U/L (5-34); Albumin 3.3 g/dL (3.4-4.8); Alkaline Phosphatase 64 U/L (40-110); Anion Gap 15 mmol/L (10-20); BUN (Urea Nitrogen) 47 mg/dL (9.8-20.1); Bilirubin, Total 0.6 mg/dL (0.2-1.2); Calc. Creatinine Clearance 0 mL/min (70-130); Calcium 9.4 mg/dL (7.8-10.44); Carbon Dioxide 23 mmol/L (23-31); Chloride 101 mmol/L (98-107); Globulin 3.9 g/dL (2.4-3.5); Glucose 211 mg/dL (83-110); Lipase 12 U/L (8-78); Potassium 4.2 mmol/L (3.5-5.1); Protein, Total 7.2 g/dL (5.8-8.1); Sodium 135 mmol/L (136-145)
[2020-12-15 12:32] LABS: CKMB 1.1 ng/mL (0-6.6)
[2020-12-15] MEDS ORDERED: Cefepime 2 GM VIAL ONE (14:05)
[2020-12-15 14:44] LABS: Bacteria/HPF 4+ HPF (None Seen); Bilirubin Negative (Negative); Blood, Urine 1+ (Negative); Clarity Turbid (Clear); Glucose, Urine (Dipstick) Normal (Negative); Ketone, Urine Negative (Negative); Leukocyte 500 Leu/uL (Negative); Nitrite 2+ (Negative); Protein, Urine (Dipstick) 50 mg/dL (Neg-Trace); Specific Gravity, Urine 1.022 (1.002-1.036); Squamous Epithelial 0-3 HPF (0-3); Urobilinogen Normal mg/dL (Less than 2); WBC/HPF Greater than 50 HPF (0-3)
[2020-12-15 15:00] LABS: Troponin I 0.026 ng/mL (< 0.028)
[2020-12-15] MEDS ORDERED: metroNIDAZOLE 500 MG/100 ML BAG ONE (15:00)
[2020-12-15 16:21] VITALS: BMI 38.0
[2020-12-15] MEDS ORDERED: Ondansetron PF 4 MG/2 ML Vial IVP PRN ×2 (17:00→17:31)
[2020-12-15] MEDS ORDERED: Lactated Ringer's 1,000 ML IV SCH (17:00)
[2020-12-15] MEDS ORDERED: Ondansetron ODT 4 MG TAB SL PRN (17:00)
[2020-12-15] MEDS ORDERED: Acetaminophen 325 MG TAB PO PRN (17:00)
[2020-12-15] MEDS ORDERED: Ondansetron ODT 4 MG TAB PO PRN (17:31)
[2020-12-15] MEDS ORDERED: Dextrose 5% in Water 1,000 ML IV PRN (17:31)
[2020-12-15] MEDS ORDERED: Dextrose 50% Abboject 50 ML SYRINGE SLOW IVP PRN (17:31)
[2020-12-15] MEDS ORDERED: HumaLOG 300 UNITS/3 ML VIAL SC PRN ×2 (17:31)
[2020-12-15] MEDS ORDERED: Acetaminophen/Codeine 30-300mg Tablet PO PRN ×2 (17:39→21:53)
[2020-12-15] MEDS: Lactated Ringer's 1,000 ML IV SCH (18:13)
[2020-12-15 18:20] LABS: Troponin I 0.032 ng/mL (< 0.028)
[2020-12-15] MEDS: Pantoprazole 40 MG VIAL IVP SCH (20:57)
[2020-12-15] MEDS ORDERED: Carvedilol 6.25 MG TAB PO SCH (21:00)
[2020-12-16] MEDS ORDERED: Sodium Chloride 0.9% 250 ML IV SCH (01:30)
[2020-12-16] MEDS ORDERED: DOPamine 400 MG/D5W 250 ML 250 ML ONE (01:32)
[2020-12-16] MEDS: DOPamine 400 MG/D5W 250 ML 250 ML IVPB SCH ×2 (01:50→16:13)
[2020-12-16 01:54] LABS: Mean Corpuscular HGB CONC 32.6 g/dL (32.0-36.0); Mean Corpuscular Volume 85.9 fL (78.0-98.0); Mean Platelet Volume 6.8 fL (7.4-10.4); Platelet Count 217 thou/uL (130-400); RBC Distribution Width 12.8 % (11.5-14.5); Red Blood Cell (RBC) Count 2.88 mill/uL (4.20-5.40); White Blood Cell (WBC) Count 25.7 thou/uL (4.8-10.8)
[2020-12-16 02:10] LABS: Lactic Acid 1.3 mmol/L (0.5-2.2)
[2020-12-16 02:19] LABS: Troponin I 0.075 ng/mL (< 0.028)
[2020-12-16] MEDS ORDERED: Piperacillin/Tazobactam 3.375 GM in Sodium Chloride 0.9% 100 ML IVPB SCH (02:30)
[2020-12-16 02:31] LABS: ALT (SGPT) 19 U/L (8-55); AST (SGOT) 31 U/L (5-34); Albumin 2.9 g/dL (3.4-4.8); Alkaline Phosphatase 58 U/L (40-110); Anion Gap 15 mmol/L (10-20); BUN (Urea Nitrogen) 44 mg/dL (9.8-20.1); Bilirubin, Total 0.6 mg/dL (0.2-1.2); Calc. Creatinine Clearance 27 mL/min (70-130); Calcium 8.2 mg/dL (7.8-10.44); Carbon Dioxide 20 mmol/L (23-31); Chloride 105 mmol/L (98-107); Globulin 2.8 g/dL (2.4-3.5); Glucose 147 mg/dL (83-110); Potassium 4.4 mmol/L (3.5-5.1); Protein, Total 5.7 g/dL (5.8-8.1); Sodium 136 mmol/L (136-145)
[2020-12-16 02:40] LABS: Band 15 % (5-11); Hypochromia SLIGHT = 6-15 cells (100X) (0-5/hpf); Lymphocytes 10 % (21-51); MDiff Complete? YES; Metamyelocyte 1 % (0-0); Monocytes 10 % (0-10); Neutrophil 64 % (42-75); Platelet Morphology Comment Appears Adequate
[2020-12-16] MEDS ORDERED: VANCOMYCIN 1.75 GM/350 ML BAG 1.75 GM in Premix Bag 1 BAG IVPB SCH (03:30)
[2020-12-16] MEDS ORDERED: Sodium Chloride 0.9% 500 ML IV SCH ×2 (03:45→04:00)
[2020-12-16 04:39] LABS: Hemoglobin A1c 5.4 % (4.0-6.0)
[2020-12-16 04:42] LABS: Hemoglobin 7.9 g/dL (12.0-16.0); Mean Corpuscular HGB CONC 32.1 g/dL (32.0-36.0); Mean Corpuscular Hemoglobin 27.5 pg (27.0-31.0); Mean Corpuscular Volume 85.8 fL (78.0-98.0); Mean Platelet Volume 7.2 fL (7.4-10.4); Platelet Count 227 thou/uL (130-400); RBC Distribution Width 12.9 % (11.5-14.5); Red Blood Cell (RBC) Count 2.88 mill/uL (4.20-5.40)
[2020-12-16 04:43] LABS: Band 14 % (5-11); Eosinophils 1 % (0-10); Lymphocytes 8 % (21-51); MDiff Complete? YES; Monocytes 10 % (0-10); Neutrophil 67 % (42-75); Platelet Morphology Comment Appears Adequate
[2020-12-16 04:50] LABS: Anion Gap 15 mmol/L (10-20); BUN (Urea Nitrogen) 45 mg/dL (9.8-20.1); Calc. Creatinine Clearance 25 mL/min (70-130); Calcium 8.5 mg/dL (7.8-10.44); Carbon Dioxide 19 mmol/L (23-31); Chloride 105 mmol/L (98-107); Glucose 152 mg/dL (83-110); Potassium 4.4 mmol/L (3.5-5.1); Sodium 135 mmol/L (136-145)
[2020-12-16] MEDS ORDERED: Piperacillin/Tazobactam 4.5 GM in Sodium Chloride 0.9% 100 ML IVPB SCH (06:00)
[2020-12-16] MEDS: Levothyroxine Sodium 100 MCG TAB PO SCH (06:50)
[2020-12-16] MEDS: Piperacillin/Tazobactam 3.375 GM in Sodium Chloride 0.9% 100 ML IVPB SCH ×2 (06:51→17:52)
[2020-12-16 08:18] LABS: Hemoglobin 7.7 g/dL (12.0-16.0)
[2020-12-16] MEDS: Pantoprazole 40 MG VIAL IVP SCH ×2 (08:42→21:46)
[2020-12-16] MEDS ORDERED: Amlodipine 5 MG TAB PO SCH (09:00)
[2020-12-16] MEDS: Lactated Ringer's 1,000 ML IV SCH ×2 (13:47→21:44)
[2020-12-16 13:48] LABS: Hemoglobin 7.6 g/dL (12.0-16.0)
[2020-12-16 13:57] LABS: SARS-CoV-2 PCR by NAA Not Detected (NotDetected)
[2020-12-16] MEDS ORDERED: cefTRIAXone\\ROCEPHIN 1 GM in Sodium Chloride 0.9% 100 ML IVPB SCH (14:00)
[2020-12-17 02:13] LABS: Vancomycin, Random 17.9 ug/mL (See Comment)
[2020-12-17] MEDS ORDERED: Vancomycin HCl 500 MG in Sodium Chloride 0.9% 100 ML IVPB SCH (03:00)
[2020-12-17] MEDS ORDERED: Vancomycin 1 GM in Premix Bag 1 BAG IVPB SCH (04:00)
[2020-12-17] MEDS: Piperacillin/Tazobactam 3.375 GM in Sodium Chloride 0.9% 100 ML IVPB SCH (05:58)
[2020-12-17] MEDS: Levothyroxine Sodium 100 MCG TAB PO SCH (05:58)
[2020-12-17] MEDS: DOPamine 400 MG/D5W 250 ML 250 ML IVPB SCH (07:34)
[2020-12-17] MEDS: Pantoprazole 40 MG VIAL IVP SCH ×2 (09:33→21:06)
[2020-12-17 09:45] LABS: Hemoglobin 8.3 g/dL (12.0-16.0); Mean Corpuscular HGB CONC 32.8 g/dL (32.0-36.0); Mean Corpuscular Hemoglobin 28.1 pg (27.0-31.0); Mean Corpuscular Volume 85.6 fL (78.0-98.0); Mean Platelet Volume 6.8 fL (7.4-10.4); Platelet Count 227 thou/uL (130-400); RBC Distribution Width 12.9 % (11.5-14.5); Red Blood Cell (RBC) Count 2.94 mill/uL (4.20-5.40); White Blood Cell (WBC) Count 20.6 thou/uL (4.8-10.8)
[2020-12-17 09:55] LABS: INR-International Normal Ratio 1.3; Prothrombin Time 15.9 sec (12.0-14.7)
[2020-12-17 09:56] LABS: PTT 37.8 sec (22.9-36.1)
[2020-12-17 10:16] LABS: ALT (SGPT) 22 U/L (8-55); AST (SGOT) 34 U/L (5-34); Albumin 2.8 g/dL (3.4-4.8); Alkaline Phosphatase 71 U/L (40-110); Anion Gap 14 mmol/L (10-20); BUN (Urea Nitrogen) 48 mg/dL (9.8-20.1); Bilirubin, Total 0.3 mg/dL (0.2-1.2); Calc. Creatinine Clearance 28 mL/min (70-130); Calcium 8.8 mg/dL (7.8-10.44); Carbon Dioxide 19 mmol/L (23-31); Chloride 107 mmol/L (98-107); Globulin 3.8 g/dL (2.4-3.5); Glucose 128 mg/dL (83-110); Potassium 4.2 mmol/L (3.5-5.1); Protein, Total 6.6 g/dL (5.8-8.1); Sodium 136 mmol/L (136-145)
[2020-12-17 10:22] LABS: Band 36 % (5-11); Lymphocytes 4 % (21-51); MDiff Complete? YES; Monocytes 7 % (0-10); Neutrophil 53 % (42-75)
[2020-12-17] MEDS ORDERED: DOPamine 400 MG/D5W 250 ML 250 ML IVPB SCH (11:00)
[2020-12-17] MEDS: Acetaminophen 325 MG TAB PO PRN ×2 (13:19→21:04)
[2020-12-17] MEDS: cefTRIAXone\\ROCEPHIN 2 GM in Sodium Chloride 0.9% 100 ML IVPB SCH (14:50)
[2020-12-18 04:46] LABS: #Eosinphils 0.4 thou/uL (0.0-0.7); #Lymphocytes 1.9 thou/uL (1.20-3.40); #Monocytes 1.3 thou/uL (0.11-0.59); #Neutrophils 10.6 thou/uL (1.40-6.50); %Basophils 0.1 % (0.0-1.0); %Lymphocytes 13.6 % (21.0-51.0); %Monocytes 8.7 % (0.0-10.0); %Neutrophils 74.5 % (42.0-75.0); Hemoglobin 7.5 g/dL (12.0-16.0); Mean Corpuscular HGB CONC 30.7 g/dL (32.0-36.0); Mean Corpuscular Hemoglobin 26.5 pg (27.0-31.0); Mean Corpuscular Volume 86.3 fL (78.0-98.0); Mean Platelet Volume 6.9 fL (7.4-10.4); Platelet Count 239 thou/uL (130-400); RBC Distribution Width 13.2 % (11.5-14.5); Red Blood Cell (RBC) Count 2.84 mill/uL (4.20-5.40); White Blood Cell (WBC) Count 14.2 thou/uL (4.8-10.8)
[2020-12-18 04:49] LABS: Vancomycin, Random 13.9 ug/mL (See Comment)
[2020-12-18 04:55] LABS: ALT (SGPT) 27 U/L (8-55); AST (SGOT) 35 U/L (5-34); Albumin 2.5 g/dL (3.4-4.8); Alkaline Phosphatase 64 U/L (40-110); Anion Gap 13 mmol/L (10-20); BUN (Urea Nitrogen) 42 mg/dL (9.8-20.1); Bilirubin, Total 0.2 mg/dL (0.2-1.2); Calc. Creatinine Clearance 32 mL/min (70-130); Calcium 8.5 mg/dL (7.8-10.44); Carbon Dioxide 21 mmol/L (23-31); Chloride 108 mmol/L (98-107); Globulin 3.6 g/dL (2.4-3.5); Glucose 117 mg/dL (83-110); Protein, Total 6.1 g/dL (5.8-8.1); Sodium 138 mmol/L (136-145)
[2020-12-18] MEDS: Lactated Ringer's 1,000 ML IV SCH (05:48)
[2020-12-18] MEDS: Levothyroxine Sodium 100 MCG TAB PO SCH (05:48)
[2020-12-18] MEDS: Acetaminophen 325 MG TAB PO PRN (05:48)
[2020-12-18] MEDS: Pantoprazole 40 MG VIAL IVP SCH ×2 (09:22→22:15)
[2020-12-18] MEDS: cefTRIAXone\\ROCEPHIN 2 GM in Sodium Chloride 0.9% 100 ML IVPB SCH (14:00)
[2020-12-18] MEDS ORDERED: Aspirin 300 MG Suppository ONE (16:09)
[2020-12-18 16:22] LABS: #Eosinphils 0.4 thou/uL (0.0-0.7); #Lymphocytes 1.8 thou/uL (1.20-3.40); #Monocytes 1.2 thou/uL (0.11-0.59); #Neutrophils 9.1 thou/uL (1.40-6.50); %Basophils 0.2 % (0.0-1.0); %Eosinophils 3.2 % (0.0-10.0); %Lymphocytes 14.4 % (21.0-51.0); %Monocytes 9.3 % (0.0-10.0); %Neutrophils 72.9 % (42.0-75.0); Hemoglobin 8.1 g/dL (12.0-16.0); Mean Corpuscular HGB CONC 31.8 g/dL (32.0-36.0); Mean Corpuscular Hemoglobin 27.4 pg (27.0-31.0); Mean Platelet Volume 6.8 fL (7.4-10.4); Platelet Count 230 thou/uL (130-400); Red Blood Cell (RBC) Count 2.96 mill/uL (4.20-5.40); White Blood Cell (WBC) Count 12.5 thou/uL (4.8-10.8)
[2020-12-18 16:33] LABS: INR-International Normal Ratio 1.2; PTT 36.3 sec (22.9-36.1); Prothrombin Time 15.5 sec (12.0-14.7)
[2020-12-18 16:54] LABS: ALT (SGPT) 30 U/L (8-55); AST (SGOT) 40 U/L (5-34); Albumin 2.6 g/dL (3.4-4.8); Alkaline Phosphatase 76 U/L (40-110); Anion Gap 12 mmol/L (10-20); BUN (Urea Nitrogen) 36 mg/dL (9.8-20.1); Bilirubin, Total 0.3 mg/dL (0.2-1.2); CK (CPK) 53 U/L (29-168); Calc. Creatinine Clearance 37 mL/min (70-130); Calcium 8.9 mg/dL (7.8-10.44); Carbon Dioxide 21 mmol/L (23-31); Chloride 110 mmol/L (98-107); Globulin 3.7 g/dL (2.4-3.5); Glucose 113 mg/dL (83-110); Protein, Total 6.3 g/dL (5.8-8.1); Sodium 139 mmol/L (136-145)
[2020-12-18] MEDS ORDERED: Aspirin 300 MG Suppository PR SCH (17:00)
[2020-12-18 17:12] LABS: CKMB 1.8 ng/mL (0-6.6)
[2020-12-19] MEDS: Levothyroxine Sodium 100 MCG TAB PO SCH (05:59)
[2020-12-19] MEDS: Lactated Ringer's 1,000 ML IV SCH (05:59)
[2020-12-19] MEDS: Pantoprazole 40 MG VIAL IVP SCH (08:16)
[2020-12-19] MEDS ORDERED: Aspirin 300 MG Suppository PR SCH (09:00)
[2020-12-19] MEDS ORDERED: Dextrose 5 %-0.45 % NaCl 1,000 ML IV SCH (10:00)
[2020-12-19 10:55] LABS: Hemoglobin 7.5 g/dL (12.0-16.0); Mean Corpuscular HGB CONC 30.9 g/dL (32.0-36.0); Mean Corpuscular Hemoglobin 26.4 pg (27.0-31.0); Mean Corpuscular Volume 85.6 fL (78.0-98.0); Mean Platelet Volume 6.9 fL (7.4-10.4); Platelet Count 244 thou/uL (130-400); RBC Distribution Width 13.2 % (11.5-14.5); Red Blood Cell (RBC) Count 2.84 mill/uL (4.20-5.40); White Blood Cell (WBC) Count 11.5 thou/uL (4.8-10.8)
[2020-12-19 11:26] LABS: Band 1 % (5-11); Eosinophils 2 % (0-10); Hypochromia SLIGHT = 6-15 cells (100X) (0-5/hpf); Lymphocytes 13 % (21-51); MDiff Complete? YES; Monocytes 14 % (0-10); Neutrophil 70 % (42-75); Platelet Morphology Comment Appears Adequate
[2020-12-19 11:54] LABS: ALT (SGPT) 39 U/L (8-55); AST (SGOT) 50 U/L (5-34); Albumin 2.5 g/dL (3.4-4.8); Alkaline Phosphatase 86 U/L (40-110); Anion Gap 14 mmol/L (10-20); BUN (Urea Nitrogen) 30 mg/dL (9.8-20.1); Bilirubin, Total 0.3 mg/dL (0.2-1.2); Calc. Creatinine Clearance 44 mL/min (70-130); Calcium 8.9 mg/dL (7.8-10.44); Carbon Dioxide 19 mmol/L (23-31); Chloride 111 mmol/L (98-107); Globulin 3.7 g/dL (2.4-3.5); Glucose 106 mg/dL (83-110); Potassium 4.4 mmol/L (3.5-5.1); Protein, Total 6.2 g/dL (5.8-8.1); Sodium 140 mmol/L (136-145)
[2020-12-19] MEDS: cefTRIAXone\\ROCEPHIN 2 GM in Sodium Chloride 0.9% 100 ML IVPB SCH (14:59)
[2020-12-19 15:32] VITALS: BP 143/65; TEMP 98.1
== END 2020-12-19 19:25 | disposition hospice, home (50) | DRG 871 ==
LOC: ERS 11:06 → ERHOLD 13:43 → 2NO 15:48
PROVIDERS: ADMIT Internal Medicine; ATTEND Internal Medicine
PROC: 3E033XZ Introduction of Vasopressor into Peripheral Vein, Percutaneous Approach (ICD-10-PCS; principal; 2020-12-16)
DX: A40.1 Sepsis due to streptococcus, group B (principal); Z20.822 Contact with and (suspected) exposure to COVID-19; Z66 Do not resuscitate; Z51.5 Encounter for palliative care; I63.9 Cerebral infarction, unspecified; R65.21 Severe sepsis with septic shock; J96.01 Acute respiratory failure with hypoxia; K92.2 Gastrointestinal hemorrhage, unspecified; D62 Acute posthemorrhagic anemia; N17.9 Acute kidney failure, unspecified; M46.26 Osteomyelitis of vertebra, lumbar region; G81.94 Hemiplegia, unspecified affecting left nondominant side; N18.4 Chronic kidney disease, stage 4 (severe); N30.00 Acute cystitis without hematuria; M46.46 Discitis, unspecified, lumbar region; G93.49 Other encephalopathy; E03.9 Hypothyroidism, unspecified; E78.5 Hyperlipidemia, unspecified; M06.9 Rheumatoid arthritis, unspecified; G89.29 Other chronic pain; M79.7 Fibromyalgia; J45.909 Unspecified asthma, uncomplicated; I12.9 Hypertensive chronic kidney disease with stage 1 through stage 4 chronic kidney disease, or unspecified chronic kidney disease; R73.9 Hyperglycemia, unspecified; K57.30 Diverticulosis of large intestine without perforation or abscess without bleeding; K64.8 Other hemorrhoids; I49.5 Sick sinus syndrome; D63.1 Anemia in chronic kidney disease; M48.061 Spinal stenosis, lumbar region without neurogenic claudication; R29.724 NIHSS score 24; R29.810 Facial weakness; Z90.49 Acquired absence of other specified parts of digestive tract; Z95.0 Presence of cardiac pacemaker; Z90.710 Acquired absence of both cervix and uterus; Z87.891 Personal history of nicotine dependence; Z86.711 Personal history of pulmonary embolism; Z88.2 Allergy status to sulfonamides; Z79.899 Other long term (current) drug therapy; Z79.82 Long term (current) use of aspirin; Z79.01 Long term (current) use of anticoagulants; Z79.890 Hormone replacement therapy
CPT/HCPCS: 36415; 36416; 51701; 70450; 71045; 72146; 72148; 74176; 80048; 80053; 80202; 81003; 81015; 82274; 82550; 82553; 83036; 83605; 83690; 83880; 84484; 85025; 85610; 85730; 87040; 87077; 87086; 87149; 87186; 93005; 93010; 93306; 93880; 94760; 95712; 95819; 95957; 96365; 96367; 96375; 96376; C9113; J0692; J0696; J1265; J2270; J2405; J2543; J3370; J3490; J7030; J7042; J7120; J7620; U0003; U0005